=== PATIENT | female | born 1945 | race Caucasian/White ===

== ENCOUNTER 2020-02-17 08:12 | Outpatient (CLI) | payer MEDICARE, OTHER, SELFPAY ==
[2020-02-17 08:41] LABS: Basophils Percent Auto 0.3 % (0.2-1.2); Eosinophils Absolute Auto 0.1 K/mm3 (0-0.3); Eosinophils Percent Auto 1.2 % (0-4.4); Hematocrit 39.7 % (37.0-47.0); Hemoglobin 13.3 g/dL (12.0-15.0); Immature Granulocyte Absolute 0.04 K/mm3 (0.00-0.031); Immature Granulocyte Percent A 0.6 % (0-0.5); Immature Platelet Fraction Pct 4.9 % (0.9-11.2); Lymphocytes Percent Auto 26.2 % (18.3-44.2); Mean Corpuscular HGB Conc 33.5 g/dl (32-36); Mean Corpuscular Volume 92.5 fl (80-100); Mean Platelet Volume 11.3 fl (7.4-10.4); Monocytes Absolute Auto 0.4 K/mm3 (0.1-0.6); Monocytes Percent Auto 6.2 % (2.6-8.5); Neutrophils Absolute Auto 4.3 K/mm3 (1.3-6.7); Neutrophils Percent Auto 65.5 % (45.5-73.1); Platelet Count Result 182 k/mm3 (150-375); Red Blood Count 4.29 M/mm3 (4.2-5.4); Red Cell Distribution Width 13.6 % (11.5-14.5); White Blood Count 6.5 K/mm3 (4.5-10.0)
[2020-02-17 08:53] LABS: Hemoglobin A1C 5.4 % (<5.7)
[2020-02-17 08:55] LABS: Alanine Aminotransferase 19 U/L (4-35); Alkaline Phosphatase 77 U/L (38-126); Anion Gap 6 mmol/L (8-16); Aspartate Amino Transferase 27 U/L (14-36); Bilirubin,Total 0.8 mg/dL (0.2-1.3); Blood Urea Nitrogen 22 mg/dL (7-17); Calcium 9.5 mg/dL (8.4-10.2); Carbon Dioxide 27 mmol/L (22-30); Chloride 105 mmol/L (98-107); Cholesterol 158 mg/dL (0-200); Estimated Glomerular Filt Rate 54; Glucose 116 mg/dL (65-105); HDL Direct 51 mg/dL; Potassium 4.2 mmol/L (3.4-5.0); Sodium 138 mmol/L (137-145); Triglycerides 248 mg/dL (<150)
[2020-02-17 09:03] LABS: LDL Cholesterol Direct 49 mg/dL
[2020-02-17 09:22] LABS: Thyroid Stimulating Hormone 0.626 uIU/mL (0.465-4.680)
== END 2020-02-17 08:13 | disposition home or self-care (01) ==
LOC: ANHLAB 08:15
PROVIDERS: PCP Family Medicine; Visit Provider Family Medicine
DX: R53.82 Chronic fatigue, unspecified (principal); I10 Essential (primary) hypertension; R73.01 Impaired fasting glucose
CPT/HCPCS: 36415; 80053; 80061; 83036; 84443; 85025; 85055

== ENCOUNTER → 2020-11-15 12:21 | Outpatient (CLI) | payer MEDICARE, OTHER, SELFPAY ==
--- NOTE | ~2020-11-15 | MM_ITS ---
EXAMINATION: MM screening [facility] BI w eliseo HISTORY: Screening mammogram TECHNIQUE: Craniocaudal and mediolateral oblique 3-D tomosynthesis images were obtained and synthetic 2-D images were generated. CAD analysis was submitted and interpreted. COMPARISON: 03/19/2019, 09/04/2017, 06/2015 bilateral digital screening mammogram examinations BREAST PARENCHYMAL COMPOSITION: The breasts are almost entirely fatty. FINDINGS: There is no evidence of suspicious mass, calcification, or architectural distortion to sugg est malignancy in either breast. There has been no suspicious interval change. IMPRESSION: 1. No mammographic evidence of malignancy. 2. Recommend routine screening mammography in one year. BI-RADS Category 1: Negative Reviewed, dictated and finalized at location A.
== END ==
PROVIDERS: PCP Family Medicine; Visit Provider Family Medicine
DX: Z12.31 Encounter for screening mammogram for malignant neoplasm of breast (principal)
CPT/HCPCS: 77063; 77067

== ENCOUNTER 2021-01-19 07:45 | Outpatient (CLI) | payer MEDICARE, OTHER, SELFPAY ==
[2021-01-19 08:19] LABS: Basophils Percent Auto 0.4 % (0.2-1.2); Eosinophils Absolute Auto 0.1 K/mm3 (0-0.3); Eosinophils Percent Auto 1.6 % (0-4.4); Hematocrit 41.4 % (37.0-47.0); Hemoglobin 13.1 g/dL (12.0-15.0); Immature Granulocyte Absolute 0.03 K/mm3 (0.00-0.031); Immature Granulocyte Percent A 0.4 % (0-0.5); Lymphocytes Absolute Auto 1.92 K/mm3 (0.9-3.2); Lymphocytes Percent Auto 27.5 % (18.3-44.2); Mean Corpuscular HGB Conc 31.6 g/dl (32-36); Mean Corpuscular Volume 91.6 fl (80-100); Mean Platelet Volume 11.2 fl (7.4-10.4); Monocytes Absolute Auto 0.5 K/mm3 (0.1-0.6); Monocytes Percent Auto 7.5 % (2.6-8.5); Neutrophils Absolute Auto 4.4 K/mm3 (1.3-6.7); Neutrophils Percent Auto 62.6 % (45.5-73.1); Platelet Count Result 195 k/mm3 (150-375); Red Blood Count 4.52 M/mm3 (4.2-5.4); Red Cell Distribution Width 13.3 % (11.5-14.5)
[2021-01-19 08:34] LABS: Alanine Aminotransferase 19 U/L (4-35); Albumin Level 4.1 g/dL (3.5-5.1); Alkaline Phosphatase 90 U/L (38-126); Anion Gap 8 mmol/L (8-16); Aspartate Amino Transferase 27 U/L (14-36); Bilirubin,Total 0.4 mg/dL (0.2-1.3); Blood Urea Nitrogen 22 mg/dL (7-17); Calcium 9.9 mg/dL (8.4-10.2); Carbon Dioxide 29 mmol/L (22-30); Chloride 101 mmol/L (98-107); Cholesterol 148 mg/dL (0-200); Estimated Glomerular Filt Rate 44; Glucose 123 mg/dL (65-110); HDL Direct 55 mg/dL; Potassium 4.3 mmol/L (3.4-5.0); Sodium 138 mmol/L (137-145); Triglycerides 209 mg/dL (<150)
[2021-01-19 08:45] LABS: LDL Cholesterol Direct 43 mg/dL
== END 2021-01-19 07:46 | disposition home or self-care (01) ==
LOC: ANHLAB 07:48
PROVIDERS: PCP Family Medicine; Visit Provider Family Medicine
DX: E78.2 Mixed hyperlipidemia (principal); I10 Essential (primary) hypertension
CPT/HCPCS: 36415; 80053; 80061; 85025

== ENCOUNTER → 2021-05-25 10:54 | Outpatient (CLI) | payer MEDICARE, OTHER, SELFPAY ==
--- NOTE | ~2021-05-25 | DEXA_ITS ---
Bone Density Report Name: ISIAH RANKIN Age: 75 Sex: Female Ethnicity: White Date of : 1945 Indication: postmenopausal; screening for osteoporosis; parental hip fracture; height loss; Referring Provider: CAROLANN STERLING Study: Bone densitometry was performed. Exam Date: May 25, 2021 Accession number: [id number] Bone Density: Region BMD T-score Z-score Classification AP Spine (L1-L4) 1.275 2.1 4.5 Normal Femoral Neck (Left) 0.814 -0.3 1.8 Normal Total Hip (Left) 1.006 0.5 2.3 Normal Femoral Neck (Right) 0.826 -0.2 1.9 Normal Total Hip (Right) 0.907 -0.3 1.5 Normal Total Hip Mean 0.957 0.1 1.9 Normal World Health Organization criteria for BMD impression classify patients as: Normal (T-score at or above -1.0), Osteopenia (T-score between -1.0 and -2.5), or Osteoporosis (T-score at or below -2.5). 10-year Fracture Risk: FRAX not reported because: All T-scores for Spine Total, Hip Total, Femoral Neck at or above -1.0 Previous Exams: Region Exam Age BMD T-score BMD Change BMD Change Date g/cm2 vs Baseline vs Previous AP Spine(L1-L4) 05/25/2021 75 1.275 2.1 0.105* 0.045* 03/19/2019 73 1.230 1.7 0.060* 0.060* 06/30/2015 69 1.170 1.1 Total Hip(Left) 05/25/2021 75 1.006 0.5 0.036* 0.019 03/19/2019 73 0.987 0.4 0.016 0.016 06/30/2015 69 0.971 0.2 Total Hip(Right) 05/25/2021 75 0.907 -0.3 0.011 0.010 03/19/2019 73 0.897 -0.4 0.001 0.001 06/30/2015 69 0.897 -0.4 *Denotes significance at 95% confidence level, LSC for AP Spine = 0.022 g/cm2, LSC for Total Hip = 0.027 g/cm2 Clinical Information Provided by Patient: Parent has had a hip fracture Has used the following medications: Vitamin D Patient maximum height was 65 Menopause Age: 54 No regular weight bearing exercise Does not regularly consume dairy products Drinks caffeinated beverages Onset of menses at age 12 Number of children 2 Impression: The patient has normal bone mass. The patient has risk factors, including: parental hip fracture. No significant bone loss was observed. Discussion: BONE DENSITY IS ABOVE THE MINIMUM DESIRABLE LEVEL AT ALL SKELETAL SITES TESTED. This patient?s bone mineral density is above the minimum desirable level (T-score -1.0 or better) at all sites measured. The patient should follow a healthful
== END ==
PROVIDERS: PCP Family Medicine; Visit Provider Family Medicine
DX: Z78.0 Asymptomatic menopausal state (principal)
CPT/HCPCS: 77080

== ENCOUNTER 2021-08-09 07:39 | Outpatient (CLI) | payer MEDICARE, OTHER, SELFPAY ==
[2021-08-09 08:08] LABS: Basophils Percent Auto 0.2 % (0.2-1.2); Eosinophils Absolute Auto 0.1 K/mm3 (0-0.3); Eosinophils Percent Auto 1.1 % (0-4.4); Hematocrit 42.5 % (37.0-47.0); Immature Granulocyte Absolute 0.04 K/mm3 (0.00-0.031); Immature Granulocyte Percent A 0.5 % (0-0.5); Lymphocytes Absolute Auto 2.13 K/mm3 (0.9-3.2); Lymphocytes Percent Auto 25.2 % (18.3-44.2); Mean Corpuscular HGB Conc 32.9 g/dl (32-36); Mean Corpuscular Hemoglobin 29.9 pg (26-34); Mean Corpuscular Volume 90.6 fl (80-100); Mean Platelet Volume 10.8 fl (7.4-10.4); Monocytes Absolute Auto 0.5 K/mm3 (0.1-0.6); Monocytes Percent Auto 5.7 % (2.6-8.5); Neutrophils Absolute Auto 5.7 K/mm3 (1.3-6.7); Neutrophils Percent Auto 67.3 % (45.5-73.1); Platelet Count Result 180 k/mm3 (150-375); Red Blood Count 4.69 M/mm3 (4.2-5.4); Red Cell Distribution Width 13.2 % (11.5-14.5); White Blood Count 8.5 K/mm3 (4.5-10.0)
[2021-08-09 08:21] LABS: Alanine Aminotransferase 15 U/L (4-35); Albumin Level 4.2 g/dL (3.5-5.1); Alkaline Phosphatase 97 U/L (38-126); Anion Gap 7 mmol/L (8-16); Aspartate Amino Transferase 24 U/L (14-36); Bilirubin,Total 0.7 mg/dL (0.2-1.3); Blood Urea Nitrogen 19 mg/dL (7-17); Calcium 9.3 mg/dL (8.4-10.2); Carbon Dioxide 32 mmol/L (22-30); Chloride 102 mmol/L (98-107); Cholesterol 157 mg/dL (0-200); Estimated Glomerular Filt Rate 54; Glucose 124 mg/dL (65-110); HDL Direct 50 mg/dL; Potassium 3.9 mmol/L (3.4-5.0); Sodium 141 mmol/L (137-145); Triglycerides 269 mg/dL (<150)
[2021-08-09 08:32] LABS: LDL Cholesterol Direct 43 mg/dL
[2021-08-09 09:25] LABS: Free T4 Free Thyroxine 1.21 ng/mL (0.78-2.19)
[2021-08-09 09:40] LABS: Total Triiodothyronine (T3) 1.24 NG/ML (0.97-1.69)
== END 2021-08-09 07:40 | disposition home or self-care (01) ==
LOC: ANHLAB 07:44
PROVIDERS: PCP Family Medicine; Visit Provider Family Medicine
DX: E03.9 Hypothyroidism, unspecified (principal); I10 Essential (primary) hypertension; E78.2 Mixed hyperlipidemia
CPT/HCPCS: 36415; 80053; 80061; 84439; 84443; 84480; 85025

== ENCOUNTER 2021-08-16 08:00 | Outpatient (CLI) | payer MEDICARE, OTHER, SELFPAY ==
[2021-08-16 09:31] LABS: Alanine Aminotransferase 16 U/L (4-35); Albumin Level 4.2 g/dL (3.5-5.1); Alkaline Phosphatase 83 U/L (38-126); Anion Gap 8 mmol/L (8-16); Aspartate Amino Transferase 26 U/L (14-36); Blood Urea Nitrogen 18 mg/dL (7-17); Calcium 9.3 mg/dL (8.4-10.2); Carbon Dioxide 28 mmol/L (22-30); Chloride 103 mmol/L (98-107); Estimated Glomerular Filt Rate 54; Glucose 119 mg/dL (65-110); Potassium 3.6 mmol/L (3.4-5.0); Sodium 139 mmol/L (137-145)
[2021-08-16 09:32] LABS: Hemoglobin A1C 5.7 % (<5.7)
== END 2021-08-16 08:01 | disposition home or self-care (01) ==
LOC: ANHLAB 08:03
PROVIDERS: PCP Family Medicine; Visit Provider Nurse Practitioner Gerontology
DX: R73.9 Hyperglycemia, unspecified (principal); E78.2 Mixed hyperlipidemia
CPT/HCPCS: 36415; 80053; 83036

== ENCOUNTER 2022-02-09 10:31 | Outpatient (CLI) | payer MEDICARE, OTHER, SELFPAY ==
[2022-02-09 08:36] LABS: Alanine Aminotransferase 19 U/L (6-35); Albumin Level 4.4 g/dL (3.5-5.1); Alkaline Phosphatase 100 U/L (38-126); Anion Gap 14 mmol/L (8-16); Aspartate Amino Transferase 25 U/L (14-36); Bilirubin,Total 0.7 mg/dL (0.2-1.3); Blood Urea Nitrogen 20 mg/dL (7-17); Calcium 9.3 mg/dL (8.4-10.2); Carbon Dioxide 27 mmol/L (22-30); Chloride 100 mmol/L (98-107); Estimated Glomerular Filt Rate 54; Glucose 142 mg/dL (65-110); Potassium 3.5 mmol/L (3.4-5.0); Sodium 141 mmol/L (137-145)
[2022-02-09 11:07] LABS: Hemoglobin A1C 5.7 % (<5.7)
== END 2022-02-09 10:32 | disposition home or self-care (01) ==
LOC: ANHLAB 10:31
PROVIDERS: Physician Assistant; PCP Family Medicine; Visit Provider Family Medicine
DX: R73.9 Hyperglycemia, unspecified (principal); I10 Essential (primary) hypertension
CPT/HCPCS: 36415; 80053; 83036

== ENCOUNTER → 2022-02-09 12:31 | Outpatient (CLI) | payer MEDICARE, OTHER, SELFPAY ==
--- NOTE | ~2022-02-09 | MM_ITS ---
EXAMINATION: MM screening [facility] BI w eliseo HISTORY: Screening mammogram TECHNIQUE: Craniocaudal and mediolateral oblique 3-D tomosynthesis images were obtained and synthetic 2-D images were generated. CAD analysis was submitted and interpreted. COMPARISON: 11/15/2020, 03/15/2019, 09/04/2017 bilateral screening mammogram examinations BREAST PARENCHYMAL COMPOSITION: The breasts are almost entirely fatty. FINDINGS: There is an approximately 3 mm density in the upper outer left breast (MLO Tomosynthesis im age 26/83); this is most likely a tortuous vessel versus small lymph node or breast mass.. Diagnostic left mammogram is recommended, with ultrasound if required. Otherwise there is no evidence of suspicious mass, calcification, or architectural distortion to sugg est malignancy in either breast. There has been no other suspicious interval change. IMPRESSION: 1. 3 mm density, upper outer left breast; differential diagnosis includes tortuous vessel versus smal l lymph node or small breast mass. 2. Recommend diagnostic left mammogram, with breast ultrasound examination if required BI-RADS Category 0: Incomplete: Needs additional imaging evaluation. Reviewed, dictated and finalized at location A. IMPRESSION: 1. 3 mm density, upper outer left breast; differential diagnosis includes tortu ous vessel versus small lymph node or small breast mass. 2. Recommend diagnostic left mammogram, with breast ultrasound examination if r equired BI-RADS Category 0: Incomplete: Needs additional imaging evaluation.
== END ==
PROVIDERS: PCP Family Medicine; Visit Provider Family Medicine
DX: Z12.31 Encounter for screening mammogram for malignant neoplasm of breast (principal); R92.8 Other abnormal and inconclusive findings on diagnostic imaging of breast
CPT/HCPCS: 77063; 77067

== ENCOUNTER → 2022-02-27 09:19 | Outpatient (CLI) | payer MEDICARE, OTHER, SELFPAY ==
--- NOTE | ~2022-02-27 | MMUS_ITS ---
EXAMINATION: MM diagnostic [facility] LT w eliseo, US breast LT limited HISTORY: Possible left breast mass on screening mammogram TECHNIQUE: Additional 3-D tomosynthesis images of the left breast were performed and synthetic 2-D im ages were generated. CAD analysis was submitted and interpreted. High resolution limited left breast ultrasound was performed. COMPARISON: 02/09/2022, 11/15/2020, 03/19/2019 BREAST PARENCHYMAL COMPOSITION: There are scattered areas of fibroglandular density. FINDINGS: MAMMOGRAPHIC FINDINGS: There is a return to baseline fibroglandular appearance with spot compression of the left breast in t he area questioned on screening mammogram. ULTRASOUND: There is no evidence of focal abnormal solid or cystic mass in the vicinity of the mammographic findi ng in question. IMPRESSION: 1. No mammographic or sonographic evidence of malignancy. 2. Recommend routine screening mammography in one year. BI-RADS Category 1: Negative Reviewed, dictated and finalized at location A. IMPRESSION: 1. No mammographic or sonographic evidence of malignancy. 2. Recommend routine screening mammography in one year. BI-RADS Category 1: Negative
== END ==
PROVIDERS: PCP Family Medicine; Visit Provider Physician Assistant
DX: R92.8 Other abnormal and inconclusive findings on diagnostic imaging of breast (principal)
CPT/HCPCS: 76642; 77061; 77065; G0279

== ENCOUNTER 2022-08-22 07:50 | Outpatient (CLI) | payer MEDICARE, OTHER, SELFPAY ==
[2022-08-22 08:35] LABS: Basophils Percent Auto 0.4 % (0.2-1.2); Eosinophils Absolute Auto 0.2 K/mm3 (0-0.3); Eosinophils Percent Auto 1.7 % (0-4.4); Hematocrit 41.5 % (37.0-47.0); Hemoglobin 13.8 g/dL (12.0-15.0); Immature Granulocyte Absolute 0.04 K/mm3 (0.00-0.031); Immature Granulocyte Percent A 0.4 % (0-0.5); Lymphocytes Absolute Auto 1.95 K/mm3 (0.9-3.2); Lymphocytes Percent Auto 21.5 % (18.3-44.2); Mean Corpuscular HGB Conc 33.3 g/dl (32-36); Mean Corpuscular Hemoglobin 30.3 pg (26-34); Mean Platelet Volume 11.5 fl (7.4-10.4); Monocytes Absolute Auto 0.6 K/mm3 (0.1-0.6); Monocytes Percent Auto 6.1 % (2.6-8.5); Neutrophils Absolute Auto 6.4 K/mm3 (1.3-6.7); Neutrophils Percent Auto 69.9 % (45.5-73.1); Platelet Count Result 205 k/mm3 (150-375); Red Blood Count 4.56 M/mm3 (4.2-5.4); Red Cell Distribution Width 13.2 % (11.5-14.5); White Blood Count 9.1 K/mm3 (4.5-10.0)
[2022-08-22 08:53] LABS: Alanine Aminotransferase 21 U/L (6-35); Albumin Level 4.3 g/dL (3.5-5.1); Alkaline Phosphatase 91 U/L (38-126); Anion Gap 6 mmol/L (8-16); Aspartate Amino Transferase 26 U/L (14-36); Bilirubin,Total 0.9 mg/dL (0.2-1.3); Blood Urea Nitrogen 19 mg/dL (7-17); Calcium 9.5 mg/dL (8.4-10.2); Carbon Dioxide 30 mmol/L (22-30); Chloride 103 mmol/L (98-107); Cholesterol 154 mg/dL (0-200); Estimated Glomerular Filt Rate > 60; Glucose 122 mg/dL (65-110); HDL Direct 47 mg/dL; Potassium 4.1 mmol/L (3.4-5.0); Sodium 139 mmol/L (137-145); Triglycerides 247 mg/dL (<150)
[2022-08-22 09:04] LABS: LDL Cholesterol Direct 46 mg/dL
[2022-08-22 09:41] LABS: Hemoglobin A1C 5.6 % (<5.7)
== END 2022-08-22 07:51 | disposition home or self-care (01) ==
PROVIDERS: PCP Family Medicine; Visit Provider Nurse Practitioner Gerontology
DX: E78.2 Mixed hyperlipidemia (principal); R73.9 Hyperglycemia, unspecified; I10 Essential (primary) hypertension
CPT/HCPCS: 36415; 80053; 80061; 83036; 84443; 85025

== ENCOUNTER 2023-01-30 07:30 | Outpatient (CLI) | payer MEDICARE, OTHER, SELFPAY ==
--- NOTE | ~2023-01-30 | XR_ITS ---
EXAM: XR lumbar spine 2-3V DATE: 01/30/2023 07:57 HISTORY: M54.40 - Lumbago with sciatica, unspecified side . COMPARISON: None available. FINDINGS: Calcified leiomyoma. Exaggerated lumbar lordosis. Lumbar scoliosis. 10 mm anterolisthesis at L4-5, the remaining vertebral bodies are aligned. 5 nonrib-bearing lumbar-type vertebral bodies. P edicles intact. Superior endplate deformity at L5, the remaining vertebral body heights preserved. Mu ltilevel disc space narrowing, vacuum phenomenon at L2-3 and L4-5. Severe multilevel mid and lower [place] mbar facet hypertrophy and sclerosis, with interspinous narrowing. Aortic calcification without evide nt aneurysm IMPRESSION: Grade 2 anterolisthesis at L4-5. Superior endplate deformity at L5 of uncertain chronicit y. Multilevel severe degenerative disc disease and facet arthropathy. Reviewed, dictated and finalized at location K. IMPRESSION: Grade 2 anterolisthesis at L4-5. Superior endplate deformity at L5 of uncertain chronicity. Multilevel severe degenerative disc disease and facet arthropathy.
[2023-01-30 08:34] LABS: LDL Cholesterol Direct 44 mg/dL
[2023-01-30 08:39] LABS: Alanine Aminotransferase 23 U/L (6-35); Albumin Level 4.2 g/dL (3.5-5.1); Alkaline Phosphatase 97 U/L (38-126); Anion Gap 7 mmol/L (8-16); Aspartate Amino Transferase 34 U/L (14-36); Bilirubin,Total 0.7 mg/dL (0.2-1.3); Blood Urea Nitrogen 17 mg/dL (7-17); Calcium 9.2 mg/dL (8.4-10.2); Carbon Dioxide 29 mmol/L (22-30); Chloride 104 mmol/L (98-107); Cholesterol 135 mg/dL (0-200); Estimated Glomerular Filt Rate 54; Glucose 121 mg/dL (65-110); HDL Direct 50 mg/dL; Hemoglobin A1C 5.8 % (<5.7); Sodium 140 mmol/L (137-145); Triglycerides 199 mg/dL (<150)
== END 2023-01-30 07:31 | disposition home or self-care (01) ==
PROVIDERS: PCP Family Medicine; Visit Provider Family Medicine
DX: R73.09 Other abnormal glucose (principal); E78.2 Mixed hyperlipidemia; I10 Essential (primary) hypertension; M54.40 Lumbago with sciatica, unspecified side; M51.36 Other intervertebral disc degeneration, lumbar region
CPT/HCPCS: 36415; 72100; 80053; 80061; 83036

== ENCOUNTER 2023-02-11 10:16 | Outpatient (CLI) | payer MEDICARE, OTHER, SELFPAY ==
[2023-02-11 10:55] LABS: Basophils Percent Auto 0.4 % (0.2-1.2); Eosinophils Absolute Auto 0.1 K/mm3 (0-0.3); Eosinophils Percent Auto 1.3 % (0-4.4); Hematocrit 41.1 % (37.0-47.0); Hemoglobin 13.4 g/dL (12.0-15.0); Immature Granulocyte Absolute 0.03 K/mm3 (0.00-0.031); Immature Granulocyte Percent A 0.4 % (0-0.5); Lymphocytes Absolute Auto 1.79 K/mm3 (0.9-3.2); Mean Corpuscular HGB Conc 32.6 g/dl (32-36); Mean Corpuscular Hemoglobin 30.1 pg (26-34); Mean Corpuscular Volume 92.4 fl (80-100); Mean Platelet Volume 11.2 fl (7.4-10.4); Monocytes Absolute Auto 0.6 K/mm3 (0.1-0.6); Neutrophils Percent Auto 69.9 % (45.5-73.1); Platelet Count Result 215 k/mm3 (150-375); Red Blood Count 4.45 M/mm3 (4.2-5.4); Red Cell Distribution Width 13.2 % (11.5-14.5); White Blood Count 8.5 K/mm3 (4.5-10.0)
[2023-02-11 11:03] LABS: Appearance Urine Clear (Clear); Bacteria Urine None Seen /hpf; Bilirubin Urine Negative (Negative); Blood Urine 2+ (Negative); Color Urine Yellow (Yellow); Glucose Urine UA Negative (Negative); Ketones Urine Negative (Negative); Leukocyte Esterase Ur 3+ LEU/UL (Negative); Nitrate Urine Negative (Negative); Non Pathogenic Casts 0-2; Protein Urine Negative (Negative); Specific Grav Ur 1.009 (1.001-1.035); Squamous Epithelial Cell Urine Occasional /hpf (Few); Urobilinogen Urine 0.2 mg/dL (<2.0); WBC Urine 21-50 /hpf; pH Urine 6.5 (5.0-9.0)
[2023-02-11 11:09] LABS: Alanine Aminotransferase 24 U/L (6-35); Albumin Level 4.3 g/dL (3.5-5.1); Alkaline Phosphatase 109 U/L (38-126); Anion Gap 9 mmol/L (8-16); Aspartate Amino Transferase 36 U/L (14-36); Bilirubin,Total 0.7 mg/dL (0.2-1.3); Blood Urea Nitrogen 17 mg/dL (7-17); Calcium 9.6 mg/dL (8.4-10.2); Carbon Dioxide 27 mmol/L (22-30); Chloride 100 mmol/L (98-107); Estimated Glomerular Filt Rate 54; Glucose 128 mg/dL (65-110); Potassium 3.7 mmol/L (3.4-5.0); Sodium 136 mmol/L (137-145)
[2023-02-11 11:12] LABS: Add Urine Microscopic? YES
== END 2023-02-11 10:17 | disposition home or self-care (01) ==
LOC: ANHLAB 10:19
PROVIDERS: PCP Family Medicine; Visit Provider Physician Assistant
DX: R31.9 Hematuria, unspecified (principal)
CPT/HCPCS: 36415; 80053; 81001; 85025; 87086

== ENCOUNTER → 2023-02-14 10:46 | Outpatient (CLI) | payer MEDICARE, OTHER, SELFPAY ==
--- NOTE | ~2023-02-14 | US_ITS ---
EXAMINATION: US pelvic complete w TV DATE: 02/14/2023 11:14 INDICATION: Postmenopausal bleeding TECHNIQUE: Multiple transabdominal and endovaginal sonographic images of the pelvis were obtained. COMPARISON: None. FINDINGS: The uterus measures 7 x 4 x 5 cm. The endometrial complex measures 7 mm. A 1.9 cm calcifica tion of the posterior uterine body likely reflects a fibroid. The ovaries are not visualized however no adnexal abnormality is seen. There is no free fluid in the pelvis. IMPRESSION: 1. Mild endometrial thickening which may be due to hyperplasia, polyp, or malignancy. Endometrial boubacar pling is recommended. Reviewed, dictated and finalized at location L. IMPRESSION: 1. Mild endometrial thickening which may be due to hyperplasia, polyp, or malig brandyn. Endometrial sampling is recommended.
== END ==
PROVIDERS: PCP Physician Assistant; Visit Provider Physician Assistant
DX: N93.9 Abnormal uterine and vaginal bleeding, unspecified (principal); Z78.0 Asymptomatic menopausal state
CPT/HCPCS: 76830; 76856

== ENCOUNTER 2023-03-07 01:17 | Day surgery (SDC) | payer MEDICARE, OTHER, SELFPAY ==
[2023-03-01 09:31] VITALS: BMI 35.2
--- NOTE | 2023-03-01 09:38 | PC.NURSE ---
Report to the Outpatient Waiting Room, entrance under the green pavilion located off [facility], at time _130pm_ on date _[id number]_. Planned Procedure Time: _330pm_. Time changes happen often and if your time is changed the preop area will call you the afternoon before. - You and your visitor will be asked to self-screen and do not enter if you have any COVID symptoms. - A mask is optional within the hospital at this time. Patients may have clear liquids (water, carbonated beverages, clear teas, apple juice) until 3 hours prior to surgery with a maximum of 20 ounces. - No food from midnight until time of surgery Take the following medications with a SIP of water the morning of surgery: ___Metoprolol DO NOT STOP ANY OF YOUR OTHER PRESCRIPTION MEDICATIONS PRIOR TO SURGERY ?EXCEPT THE FOLLOWING Medications to discontinue per physician None Date to take last dose Please no make-up, nail iranian, hairspray, perfume, deodorant, or body powder the day of surgery. No jewelry (including any body piercings) or valuables the day of surgery, leave them at home. Please take a shower or bath the night before, or the morning of, surgery with an antibacterial soap. Wear comfortable, loose fitting clothing. - Jewelry must be removed prior to entering the operating room. Rings and piercings that are not removed may be cut off. - The hospital will not accept responsibility for valuables. - Please leave all valuables, including medications, at home the day of surgery. If you are going home after surgery, a licensed bobtail driver must drive you home. - NO public transportation without another adult if you receive anesthesia. - We recommend that an adult stay with you for 24 hours following discharge. - We also recommend that you do not drive, make important decision, drink alcoholic beverages, or take any drugs that were not prescribed by your health care provider for at least 24 hours after your discharge time. Follow any additional instructions given to you from your surgeon. If you or anyone in your household have experienced Covid symptoms in the past week, please notify your surgeon or the nurse liaison at the phone number below for possible testing. Telephone instructions given to __Patient_and asked if any additional questions and then verbalized understanding. Patient advised to call surgeon office or pre surgery nurse liaison [phone] if any additional questions.
--- NOTE | 2023-03-07 08:42 | PM.IMHP ---
H&P: HPI History of Present Illness Date/Time: 03/07/23 08:42 Chief Complaint: Postmenopausal bleeding Narrative: 77-year-old female who presents for hysteroscopy D&C for management of postmenopausal bleeding. Patient states she had an episode of postmenopausal bleeding that started approximately 2 weeks ago.? Patient states it initially started as dark brown spotting on tissue.? The patient states that after several days it progressed to a bright red bleeding.? Patient's primary care physician ordered a pelvic ultrasound.? Pelvic ultrasound returned with a slightly thickened endometrial lining at 7 mm.? She was also noted to have a 2 cm posterior fibroid.? Patient went through menopause in her 50s.? The patient states she had a net her episode of breakthrough spotting last year.? Patient has never been on any hormone replacement therapy.? Patient denies any pain, cramping, fevers, chills. Review of Systems Cardiovascular: Cardiovascular: Denies chest pain, Denies leg edema, Denies palpitations, Denies dyspnea and Denies dyspnea on exertion Respiratory: Respiratory: Denies cough, Denies dyspnea and Denies dyspnea on exertion Gastrointestinal: Gastrointestinal: Denies abdominal pain, Denies constipation, Denies diarrhea, Denies nausea and Denies vomiting Genitourinary: Genitourinary: Denies hematuria, Denies urinary frequency, Denies dysuria, Denies pelvic pain, Denies urinary incontinence and Denies vaginal discharge Neurologic: Reports system reviewed and no additional complaints, except as documented Psychiatric: Psychiatric: Reports no additional psychiatric complaints Endocrine: Endocrine: Denies palpitations PMFSH Past Medical History Medical History (Updated 02/19/23 @ 14:32 by Preston Lazcano MD) Benign systolic hypertension Mixed hyperlipidemia Surgical History Surgical History (Updated 02/19/23 @ 14:15 by Anna Hernandez CMA) History of total knee arthroplasty Hx of cholecystectomy Status post total shoulder arthroplasty Family History Family History Father Hypertension Family history of elevated blood lipids Patient's father is Mother Hypertension Family history of elevated blood lipids Other Family history of malignant neoplasm Social History Social History (Updated 02/19/23 @ 14:16 by Anna Hernandez CMA) Social History: Smoking status: Never smoker Second hand tobacco smoke exposure: No Alcohol intake: current Alcohol use details: seldom Substance use: never Substance use type: does not use Lack of Transportation: No Lack of Food: Never True Current Housing: I Have Housing Concerned About Future Housing: No Difficulty Paying Gas/Electric Bills: No Difficulty Paying for Meds: No Currently Unemployed: YES Education: Decline to Answer Difficulty w/ Childcare or Family Care: No Living arrangements: with family Occupation/Education: retired Gender identity (if verbalized by the patient): Female Sexual Orientation (if Verbalized by the Patient): Straight or Heterosexual Spiritual care concerns: No Meds Home Medications and Allergies Home Medications Medication Instructions Recorded Confirmed Type metoprolol succinate 50 mg See Rx Instructions .Route 12/06/22 03/01/23 Rx tablet,extended release 24 hr .COMPLEX #180 tabs atorvastatin 10 mg tablet 10 mg PO QHS #90 tabs 12/18/22 03/01/23 Rx ezetimibe 10 mg tablet (Zetia) 10 mg PO DAILY #90 tabs 12/18/22 03/01/23 Rx irbesartan 300 See Rx Instructions .Route 12/19/22 03/01/23 Rx mg-hydrochlorothiazide 12.5 mg .COMPLEX #90 tabs tablet omeprazole magnesium 10 mg oral 10 mg PO DAILY 02/19/23 03/01/23 History suspension,delayed release (Prilosec) ibuprofen 200 mg tablet (Advil) 400 mg PO Q6H PRN Pain 03/01/23 03/01/23 History Allergies Allergy/AdvReac Type Severity Reaction Status Date / Time
--- NOTE | 2023-03-07 08:44 | WPDHPUPDATE1 ---
History and Physical Update Update Date/Time: 03/07/23 08:44 History and Physical has been reviewed, including an updated exam of the patient. There are NO changes in the patient's condition. Risks, benefits, and alternatives have been discussed and questions answered. Patient agrees to proceed with procedure.
[2023-03-07] MEDS: ACETAMINOPHEN 500 MG TABLET 1000 MG PO (14:00)
--- NOTE | 2023-03-07 14:15 | WPDANESEPPF ---
Anes - Initial Pre Proc Eval Procedure: Operation Date: 03/07/23 15:30 Proposed Procedures p Hysteroscopy Dilation and Curettage - Preston Lazcano MD Date/Time: 03/07/23 14:15 Surgeon: Preston Lazcano MD Pre Op Diagnosis: Post Menopausal Bleeding Patient Data Age: 77 Gender: F Height: 1.63 m Weight: 93.2 kg Allergies Allergy/AdvReac Type Severity Reaction Status Date / Time Sulfa (Sulfonamide Allergy Intermediate rash Verified 02/19/23 14:13 Antibiotics) Home Medications Medication Instructions Recorded Confirmed Type metoprolol succinate 50 mg See Rx Instructions .Route 12/06/22 03/01/23 Rx tablet,extended release 24 hr .COMPLEX #180 tabs atorvastatin 10 mg tablet 10 mg PO QHS #90 tabs 12/18/22 03/01/23 Rx ezetimibe 10 mg tablet (Zetia) 10 mg PO DAILY #90 tabs 12/18/22 03/01/23 Rx irbesartan 300 See Rx Instructions .Route 12/19/22 03/01/23 Rx mg-hydrochlorothiazide 12.5 mg .COMPLEX #90 tabs tablet omeprazole magnesium 10 mg oral 10 mg PO DAILY 02/19/23 03/01/23 History suspension,delayed release (Prilosec) ibuprofen 200 mg tablet (Advil) 400 mg PO Q6H PRN Pain 03/01/23 03/01/23 History Patient hx anesthesia problems: none Family hx anesthesia problems: none Results Review: All pre-operative results and documents have been reviewed as part of the pre-operative evaluation. [facility] Past Medical History Medical History (Updated 03/07/23 @ 14:15 by Viet Martin MD) Benign systolic hypertension Mixed hyperlipidemia Obesity Surgical History Surgical History (Updated 02/19/23 @ 14:15 by Anna Hernandez CMA) History of total knee arthroplasty Hx of cholecystectomy Status post total shoulder arthroplasty Family History Family History Father Hypertension Family history of elevated blood lipids Patient's father is Mother Hypertension Family history of elevated blood lipids Other Family history of malignant neoplasm Social History Social History Social History: Smoking status: Never smoker Second hand tobacco smoke exposure: No Alcohol intake: current Alcohol use details: seldom Substance use: never Substance use type: does not use Lack of Transportation: No Lack of Food: Never True Current Housing: I Have Housing Concerned About Future Housing: No Difficulty Paying Gas/Electric Bills: No Difficulty Paying for Meds: No Currently Unemployed: YES Education: Decline to Answer Difficulty w/ Childcare or Family Care: No Living arrangements: with family Occupation/Education: retired Gender identity (if verbalized by the patient): Female Sexual Orientation (if Verbalized by the Patient): Straight or Heterosexual Spiritual care concerns: No Anes - Eval Final PreProcedure Day of Procedure 03/07/23 14:15 Patient weight: obese Heart: regular rate and rhythm Lungs: clear to auscultation Airway: Mallampati scale class II Neurological: alert and oriented Last oral intake: >/= 8 hours ASA classification: III Emergent: no Anesthetic plan: proceed Anesthesia type and monitoring: general GIVS and standard monitoring Results Review: All pre-operative results and documents have been reviewed as part of the pre-operative evaluation. Informed Consent: The patient's anesthetic plan and its attendant risks and benefits were discussed with the patient/family/POA. Questions were solicited and answers provided to the satisfaction of the patient/family/POA.
[2023-03-07 14:16] VITALS: BP 151/79; PULSE 74; RESP 14; TEMP 36.8; O2SAT 99
[2023-03-07] MEDS: LACTATED RINGERS 1,000 ML 30 ML IV CONT (14:22)
--- NOTE | 2023-03-07 15:09 | P.OP_ITS ---
Procedure Note - Detailed Date of Procedure 03/07/23 Pre-op Diagnosis Post Menopausal Bleeding Post-op Diagnosis Same Procedure Performed paracervical block hysteroscopy dilation & curettage Surgeon Preston Lazcano MD Anesthesia General Indications postmenopausal bleeding thickened endometrium on US Findings globally thickened and irregular endometrium, hypervascular. Pt found to have a friable exophytic lesion of the cervix. Description of Procedure Kanwal Nogueira presents for the above procedure for PMB. She was counseled as to the indications, risks, benefits, and alternatives to surgery, with the risks including bleeding, infection, damage to surrounding organs, VTE, and complications of anesthesia. Her verbal and written consent was obtained. PROCEDURE: The patient was taken to the OR and general anesthesia induced. She was prepped and draped in Cameron stirrups with support of the back and bilateral lower extremities. I/O catheterization performed of the bladder. The above findings were noted. In filtration with 1% lidocaine at the 3 and 9 o'clock cervical positions was performed. A single tooth tenaculum was placed on the anterior lip of the cervix. Hysteroscopy, using a normal saline medium, was performed and showed the above findings. Visualization of the endometrial cavity was complicated due to the large amount of abnormal tissue. Sharp uterine curettage was then performed and tissue placed on Telfa. The tissue was very friable. Large clumps of tissue were expressed with curettage. The tenaculum was removed and hemostasis was observed. The patient tolerated the procedure well. Sponge, lap, and needle counts were correct. The patient had SCD's on throughout the case for VTE prophylaxis. The patient was taken to the recovery room in stable condition. Estimated Blood Loss 25 Drains No Packing No Pathology Yes (endometrial curettings ) Complications No immediate complications Condition Stable Disposition PACU [facility] Billing Surgery - Charge Forward: Surgery Billing
[2023-03-07 15:12] VITALS: BP 110/48; PULSE 83; RESP 14; O2SAT 100
[2023-03-07 15:40] VITALS: BP 141/73; PULSE 61
[2023-03-07] MEDS: fentaNYL CITRATE INJ (*CRX) 100 MCG/2 ML VIAL 25 MCG IV PUSH ×3 (15:54→16:28)
[2023-03-07] MEDS: oxyCODONE HCL (*CRX) 5 MG TAB IR PO (15:55)
[2023-03-07 16:10] VITALS: BP 143/48; PULSE 56
[2023-03-07 16:40] VITALS: BP 147/65; PULSE 67
== END 2023-03-07 16:50 | disposition home or self-care (01) ==
PROVIDERS: PCP Physician Assistant; Visit Provider Student in an Organized Health Care Education/Training Program
PROC: 0U5B8ZZ Destruction of Endometrium, Via Natural or Artificial Opening Endoscopic (ICD-10-PCS; CPT 58563; principal; 2023-03-07 15:30)
DX: C54.1 Malignant neoplasm of endometrium (principal); N95.0 Postmenopausal bleeding; I10 Essential (primary) hypertension; E78.2 Mixed hyperlipidemia; E66.9 Obesity, unspecified; Z68.34 Body mass index [BMI] 34.0-34.9, adult
CPT/HCPCS: 58558; 88305; 88341; 88342; A9270; J2405; J2704; J3010; J7120

== ENCOUNTER 2023-04-11 08:29 | Outpatient (CLI) | payer MEDICARE, OTHER, SELFPAY ==
--- NOTE | ~2023-04-11 | MR_ITS ---
EXAMINATION: MR pelvis wo/w con DATE: 04/11/2023 10:07 INDICATION: Endometrial cancer. TECHNIQUE: Magnetic resonance imaging (MRI) of the pelvis was performed without and with 18 mL MultiH ance intravenous contrast. COMPARISON: CT abdomen and pelvis 04/11/2023 FINDINGS: There is a 5.0 x 4.9 cm hypoenhancing mass in the uterus involving the endometrial complex that exten ds to the surface of the uterus and likely invades the serosa of the uterus. There is a calcified fib roid uterus. There are no pathologically enlarged lymph nodes. There is no free intraperitoneal fluid . IMPRESSION: 1. Uterine mass with likely involvement of the serosa, consistent with endometrial cancer. Reviewed, dictated and finalized at location A. O WORKER IMPRESSION: 1. Uterine mass with likely involvement of the serosa, consistent with endometr ial cancer.
--- NOTE | ~2023-04-11 | CT_ITS ---
CT of the Abdomen and Pelvis: Indication: Endometrial carcinoma Technique: 2.5 mm axial scans were obtained through the abdomen and pelvis following intravenous adm inistration of 100 cc of Omnipaque 350. Dose reduction technique was used on this scan by utilizing a utomated exposure control and iterative reconstruction technique. The dose-length product (DLP) was 1 349.90 mGy-cm. Findings: Scans through the lung bases are unremarkable. There are multiple hypodense hepatic masses (at least 7), consistent with metastatic disease. Largest lesion is probably in the right hepatic lobe measuring approximately 3.8 cm in diameter. The spleen, pancreas, gallbladder, adrenals and kidneys are within normal limits. There are atherosclerotic calc ifications of the aorta. No lymphadenopathy. No bowel obstruction or bowel wall thickening. There is no evidence to suggest acute appendicitis. Du odenal diverticulum noted. Images through the pelvis were performed. Urinary bladder unremarkable. Somewhat heterogeneous appear ance of the uterus, with a small calcified fibroid present. No ascites. Impression: Multiple hepatic metastatic lesions, as detailed above. Somewhat heterogeneous appearance of the uterus. This could be related to history of endometrial canc er. Additional small calcified fibroid present. Reviewed, dictated and finalized at location . ELING AND CUTTING CONTROL CLERK Impression: Multiple hepatic metastatic lesions, as detailed above. Somewhat heterogeneous appearance of the uterus. This could be related to histo ry of endometrial cancer. Additional small calcified fibroid present.
--- NOTE | ~2023-04-11 | XR_ITS ---
Clinical Indication: Endometrial cancer PA and lateral views of the chest: Comparison: None Findings: The lungs are clear, without evidence of focal consolidation or pleural effusion. Cardiome diastinal silhouette is within normal limits. Right shoulder arthroplasty present. There is advanced degenerative change of the left glenohumeral joint. Impression: Clear lungs. Reviewed, dictated and finalized at location . PMENT MAN Impression: Clear lungs.
[2023-04-11 09:02] LABS: Estimated Glomerular Filt Rate 48
== END 2023-04-11 08:30 | disposition home or self-care (01) ==
PROVIDERS: PCP Family Medicine
DX: C54.1 Malignant neoplasm of endometrium (principal)
CPT/HCPCS: 71046; 72197; 74177; A9577; Q9967

== ENCOUNTER 2023-04-22 07:12 | Outpatient (CLI) | payer MEDICARE, OTHER, SELFPAY ==
[2023-04-22 07:38] LABS: Basophils Percent Auto 0.3 % (0.2-1.2); Eosinophils Absolute Auto 0.1 K/mm3 (0-0.3); Eosinophils Percent Auto 1.1 % (0-4.4); Hematocrit 39.6 % (37.0-47.0); Hemoglobin 12.7 g/dL (12.0-15.0); Immature Granulocyte Absolute 0.03 K/mm3 (0.00-0.031); Immature Granulocyte Percent A 0.3 % (0-0.5); Lymphocytes Absolute Auto 1.81 K/mm3 (0.9-3.2); Lymphocytes Percent Auto 20.2 % (18.3-44.2); Mean Corpuscular HGB Conc 32.1 g/dl (32-36); Mean Corpuscular Hemoglobin 29.7 pg (26-34); Mean Corpuscular Volume 92.5 fl (80-100); Mean Platelet Volume 10.4 fl (7.4-10.4); Monocytes Absolute Auto 0.6 K/mm3 (0.1-0.6); Monocytes Percent Auto 6.2 % (2.6-8.5); Neutrophils Absolute Auto 6.4 K/mm3 (1.3-6.7); Neutrophils Percent Auto 71.9 % (45.5-73.1); Platelet Count Result 220 k/mm3 (150-375); Red Blood Count 4.28 M/mm3 (4.2-5.4); Red Cell Distribution Width 13.1 % (11.5-14.5)
[2023-04-22 07:47] LABS: Alanine Aminotransferase 20 U/L (6-35); Albumin Level 4.2 g/dL (3.5-5.1); Alkaline Phosphatase 98 U/L (38-126); Anion Gap 10 mmol/L (8-16); Aspartate Amino Transferase 34 U/L (14-36); Bilirubin,Total 0.9 mg/dL (0.2-1.3); Blood Urea Nitrogen 17 mg/dL (7-17); Calcium 9.6 mg/dL (8.4-10.2); Carbon Dioxide 26 mmol/L (22-30); Chloride 102 mmol/L (98-107); Estimated Glomerular Filt Rate 48; Glucose 116 mg/dL (65-110); Potassium 3.9 mmol/L (3.4-5.0); Sodium 138 mmol/L (137-145)
[2023-04-22 07:49] LABS: Partial Thromboplastin Time 26.1 SECONDS (22.3-36.8)
[2023-04-22 13:09] LABS: Prothrombin Time 13.7 Seconds (11.1-14.7)
== END 2023-04-22 07:13 | disposition home or self-care (01) ==
PROVIDERS: PCP Family Medicine; Visit Provider Family Medicine
DX: I10 Essential (primary) hypertension (principal); N95.0 Postmenopausal bleeding; Z01.810 Encounter for preprocedural cardiovascular examination
CPT/HCPCS: 36415; 80053; 85025; 85610; 85730

== ENCOUNTER 2023-04-24 07:26 | Outpatient (CLI) | payer MEDICARE, OTHER, SELFPAY ==
--- NOTE | ~2023-04-24 | CT_ITS ---
Clinical Indication: Lung nodule CT Scan of the Chest with Contrast: Technique: Contiguous sections were acquired throughout the chest after intravenous administration of 75 cc of Omnipaque 350. Dose reduction technique was used on this scan by utilizing automated exposu re control and iterative reconstruction technique. The dose-length product (DLP) was 378.97 mGy-cm. COMPARISON: Abdominal pelvic CT dated 04/11/2023 Findings: There is no evidence of any significant mediastinal, hilar or axillary lymphadenopathy. There is no f illing defect in the pulmonary arterial tree to suggest pulmonary embolus. There is no evidence of ao rtic dissection or aneurysm. There is no evidence of pleural or pericardial effusion. There are numerous bilateral noncalcified pulmonary nodules measuring approximately 4-6 mm in diamete r. Images through the upper abdomen reveal hepatic metastatic lesions, stable from recent exam dated . Impression: Numerous bilateral noncalcified pulmonary nodule measuring approximate 4-6 mm in diameter. Given hist ory of endometrial carcinoma and evidence of hepatic metastatic disease, findings are suspicious for multiple small pulmonary metastatic lesions. Hepatic metastatic disease, as seen on prior abdominal pelvic CT dated 04/11/2023. Reviewed, dictated and finalized at [facility]. [employer] Impression: Numerous bilateral noncalcified pulmonary nodule measuring approximate 4-6 mm i n diameter. Given history of endometrial carcinoma and evidence of hepatic meta static disease, findings are suspicious for multiple small pulmonary metastatic lesions. Hepatic metastatic disease, as seen on prior abdominal pelvic CT dated 04/11/20 23.
== END 2023-04-24 07:27 | disposition home or self-care (01) ==
PROVIDERS: PCP Family Medicine
DX: R91.8 Other nonspecific abnormal finding of lung field (principal); K76.89 Other specified diseases of liver
CPT/HCPCS: 71260; Q9967

== ENCOUNTER 2023-05-09 07:05 | Outpatient (CLI) | payer MEDICARE, OTHER, SELFPAY ==
[2023-05-09 08:15] LABS: Basophils Percent Auto 0.4 % (0.2-1.2); Eosinophils Absolute Auto 0.1 K/mm3 (0-0.3); Eosinophils Percent Auto 1.1 % (0-4.4); Hematocrit 39.2 % (37.0-47.0); Hemoglobin 12.1 g/dL (12.0-15.0); Immature Granulocyte Absolute 0.04 K/mm3 (0.00-0.031); Immature Granulocyte Percent A 0.5 % (0-0.5); Lymphocytes Absolute Auto 1.61 K/mm3 (0.9-3.2); Lymphocytes Percent Auto 19.8 % (18.3-44.2); Mean Corpuscular HGB Conc 30.9 g/dl (32-36); Mean Corpuscular Hemoglobin 28.9 pg (26-34); Mean Corpuscular Volume 93.8 fl (80-100); Mean Platelet Volume 10.6 fl (7.4-10.4); Monocytes Absolute Auto 0.5 K/mm3 (0.1-0.6); Monocytes Percent Auto 6.4 % (2.6-8.5); Neutrophils Absolute Auto 5.9 K/mm3 (1.3-6.7); Neutrophils Percent Auto 71.8 % (45.5-73.1); Platelet Count Result 217 k/mm3 (150-375); Red Blood Count 4.18 M/mm3 (4.2-5.4); Red Cell Distribution Width 13.6 % (11.5-14.5); White Blood Count 8.2 K/mm3 (4.5-10.0)
[2023-05-09 08:39] LABS: Alanine Aminotransferase 19 U/L (6-35); Alkaline Phosphatase 96 U/L (38-126); Anion Gap 7 mmol/L (8-16); Aspartate Amino Transferase 31 U/L (14-36); Bilirubin,Total 0.7 mg/dL (0.2-1.3); Blood Urea Nitrogen 18 mg/dL (7-17); Calcium 9.4 mg/dL (8.4-10.2); Carbon Dioxide 28 mmol/L (22-30); Chloride 104 mmol/L (98-107); Estimated Glomerular Filt Rate 54; Glucose 123 mg/dL (65-110); Magnesium 1.6 mg/dL (1.6-2.3); Potassium 4.1 mmol/L (3.4-5.0); Sodium 139 mmol/L (137-145)
[2023-05-12 00:17] LABS: CA-125 1251 U/mL (<35)
== END 2023-05-09 07:06 | disposition home or self-care (01) ==
PROVIDERS: PCP Family Medicine
DX: C54.1 Malignant neoplasm of endometrium (principal)
CPT/HCPCS: 36415; 80053; 83735; 85025; 86304

== ENCOUNTER 2023-06-07 07:32 | Outpatient (CLI) | payer MEDICARE, OTHER, SELFPAY ==
[2023-06-07 08:14] LABS: Basophils Absolute Auto 0.1 K/mm3 (0.0-0.1); Basophils Percent Auto 0.8 % (0.2-1.2); Eosinophils Absolute Auto 0.1 K/mm3 (0-0.3); Eosinophils Percent Auto 1.2 % (0-4.4); Hematocrit 35.5 % (37.0-47.0); Immature Granulocyte Absolute 0.12 K/mm3 (0.00-0.031); Immature Granulocyte Percent A 1.3 % (0-0.5); Lymphocytes Absolute Auto 1.67 K/mm3 (0.9-3.2); Lymphocytes Percent Auto 18.3 % (18.3-44.2); Mean Corpuscular Hemoglobin 28.6 pg (26-34); Mean Corpuscular Volume 92.4 fl (80-100); Mean Platelet Volume 9.6 fl (7.4-10.4); Monocytes Absolute Auto 0.5 K/mm3 (0.1-0.6); Monocytes Percent Auto 5.8 % (2.6-8.5); Neutrophils Absolute Auto 6.6 K/mm3 (1.3-6.7); Neutrophils Percent Auto 72.6 % (45.5-73.1); Platelet Count Result 370 k/mm3 (150-375); Red Blood Count 3.84 M/mm3 (4.2-5.4); Red Cell Distribution Width 15.1 % (11.5-14.5); White Blood Count 9.1 K/mm3 (4.5-10.0)
[2023-06-07 08:26] LABS: Alanine Aminotransferase 27 U/L (6-35); Albumin Level 3.7 g/dL (3.5-5.1); Alkaline Phosphatase 110 U/L (38-126); Anion Gap 11 mmol/L (8-16); Aspartate Amino Transferase 28 U/L (14-36); Bilirubin,Total 0.5 mg/dL (0.2-1.3); Blood Urea Nitrogen 15 mg/dL (7-17); Calcium 9.2 mg/dL (8.4-10.2); Carbon Dioxide 25 mmol/L (22-30); Chloride 103 mmol/L (98-107); Estimated Glomerular Filt Rate > 60; Glucose 115 mg/dL (65-110); Magnesium 1.3 mg/dL (1.6-2.3); Phosphorus 3.6 mg/dL (2.5-4.5); Potassium 3.7 mmol/L (3.4-5.0); Sodium 139 mmol/L (137-145)
[2023-06-07 09:02] LABS: Thyroid Stimulating Hormone Reflex 0.516 uIU/mL (0.465-4.68)
[2023-06-15 09:56] LABS: CA-125 295
== END 2023-06-07 07:33 | disposition home or self-care (01) ==
PROVIDERS: PCP Family Medicine
DX: C54.1 Malignant neoplasm of endometrium (principal); E83.39 Other disorders of phosphorus metabolism; R94.6 Abnormal results of thyroid function studies
CPT/HCPCS: 36415; 80053; 83735; 84100; 84443; 85025; 86304

== ENCOUNTER 2023-06-27 07:30 | Outpatient (CLI) | payer MEDICARE, OTHER, SELFPAY ==
[2023-06-27 08:32] LABS: Basophils Absolute Auto 0.1 K/mm3 (0.0-0.1); Basophils Percent Auto 0.8 % (0.2-1.2); Hemoglobin 10.7 g/dL (12.0-15.0); Immature Granulocyte Absolute 0.27 K/mm3 (0.00-0.031); Immature Granulocyte Percent A 2.7 % (0-0.5); Lymphocytes Absolute Auto 1.33 K/mm3 (0.9-3.2); Lymphocytes Percent Auto 13.5 % (18.3-44.2); Mean Corpuscular HGB Conc 32.4 g/dl (32-36); Mean Corpuscular Hemoglobin 29.5 pg (26-34); Mean Corpuscular Volume 90.9 fl (80-100); Mean Platelet Volume 9.6 fl (7.4-10.4); Monocytes Absolute Auto 0.7 K/mm3 (0.1-0.6); Monocytes Percent Auto 6.9 % (2.6-8.5); Neutrophils Absolute Auto 7.5 K/mm3 (1.3-6.7); Neutrophils Percent Auto 76.1 % (45.5-73.1); Platelet Count Result 219 k/mm3 (150-375); Red Blood Count 3.63 M/mm3 (4.2-5.4); Red Cell Distribution Width 16.7 % (11.5-14.5); White Blood Count 9.9 K/mm3 (4.5-10.0)
[2023-06-27 08:47] LABS: Alanine Aminotransferase 22 U/L (6-35); Albumin Level 3.7 g/dL (3.5-5.1); Alkaline Phosphatase 104 U/L (38-126); Anion Gap 12 mmol/L (8-16); Aspartate Amino Transferase 29 U/L (14-36); Bilirubin,Total 0.8 mg/dL (0.2-1.3); Blood Urea Nitrogen 17 mg/dL (7-17); Calcium 9.6 mg/dL (8.4-10.2); Carbon Dioxide 24 mmol/L (22-30); Chloride 100 mmol/L (98-107); Estimated Glomerular Filt Rate 48; Glucose 130 mg/dL (65-110); Magnesium 1.6 mg/dL (1.6-2.3); Potassium 3.8 mmol/L (3.4-5.0); Sodium 136 mmol/L (137-145)
[2023-06-27 09:34] LABS: Thyroid Stimulating Hormone Reflex 0.686 uIU/mL (0.465-4.68)
[2023-07-02 01:34] LABS: CA-125 161 U/mL (<35)
== END 2023-06-27 07:31 | disposition home or self-care (01) ==
PROVIDERS: PCP Family Medicine
DX: C54.1 Malignant neoplasm of endometrium (principal); R94.6 Abnormal results of thyroid function studies
CPT/HCPCS: 36415; 80053; 83735; 84443; 85025; 86304

== ENCOUNTER 2023-07-18 07:15 | Outpatient (CLI) | payer MEDICARE, OTHER, SELFPAY ==
[2023-07-18 08:14] LABS: Basophils Absolute Auto 0.1 K/mm3 (0.0-0.1); Basophils Percent Auto 0.5 % (0.2-1.2); Eosinophils Percent Auto 0.2 % (0-4.4); Hematocrit 33.1 % (37.0-47.0); Hemoglobin 10.5 g/dL (12.0-15.0); Immature Granulocyte Absolute 0.13 K/mm3 (0.00-0.031); Immature Granulocyte Percent A 1.2 % (0-0.5); Lymphocytes Absolute Auto 1.83 K/mm3 (0.9-3.2); Lymphocytes Percent Auto 16.5 % (18.3-44.2); Mean Corpuscular HGB Conc 31.7 g/dl (32-36); Mean Corpuscular Hemoglobin 30.5 pg (26-34); Mean Corpuscular Volume 96.2 fl (80-100); Mean Platelet Volume 10.3 fl (7.4-10.4); Monocytes Absolute Auto 0.7 K/mm3 (0.1-0.6); Neutrophils Absolute Auto 8.4 K/mm3 (1.3-6.7); Neutrophils Percent Auto 75.6 % (45.5-73.1); Platelet Count Result 134 k/mm3 (150-375); Red Blood Count 3.44 M/mm3 (4.2-5.4); Red Cell Distribution Width 18.7 % (11.5-14.5); White Blood Count 11.1 K/mm3 (4.5-10.0)
[2023-07-18 08:16] LABS: Alanine Aminotransferase 18 U/L (6-35); Albumin Level 3.9 g/dL (3.5-5.1); Alkaline Phosphatase 108 U/L (38-126); Anion Gap 9 mmol/L (8-16); Aspartate Amino Transferase 30 U/L (14-36); Bilirubin,Total 0.8 mg/dL (0.2-1.3); Blood Urea Nitrogen 16 mg/dL (7-17); Calcium 9.3 mg/dL (8.4-10.2); Carbon Dioxide 24 mmol/L (22-30); Chloride 103 mmol/L (98-107); Estimated Glomerular Filt Rate 54; Glucose 116 mg/dL (65-110); Magnesium 1.4 mg/dL (1.6-2.3); Potassium 3.7 mmol/L (3.4-5.0); Sodium 136 mmol/L (137-145)
[2023-07-18 08:48] LABS: Thyroid Stimulating Hormone 0.817 uIU/mL (0.465-4.680)
[2023-07-20 02:18] LABS: CA-125 52 U/mL (<35)
== END 2023-07-18 07:16 | disposition home or self-care (01) ==
LOC: ANHLAB 07:19
PROVIDERS: PCP Family Medicine; Visit Provider Obstetrics & Gynecology Gynecologic Oncology
DX: C54.1 Malignant neoplasm of endometrium (principal); R94.6 Abnormal results of thyroid function studies
CPT/HCPCS: 36415; 80053; 83735; 84443; 85025; 86304

== ENCOUNTER 2023-08-09 07:12 | Outpatient (CLI) | payer MEDICARE, OTHER, SELFPAY ==
[2023-08-09 08:15] LABS: Basophils Percent Auto 0.6 % (0.2-1.2); Eosinophils Percent Auto 0.3 % (0-4.4); Hemoglobin 10.1 g/dL (12.0-15.0); Immature Granulocyte Absolute 0.05 K/mm3 (0.00-0.031); Immature Granulocyte Percent A 0.8 % (0-0.5); Lymphocytes Absolute Auto 1.12 K/mm3 (0.9-3.2); Lymphocytes Percent Auto 17.3 % (18.3-44.2); Mean Corpuscular HGB Conc 31.6 g/dl (32-36); Mean Corpuscular Hemoglobin 31.6 pg (26-34); Mean Platelet Volume 9.8 fl (7.4-10.4); Monocytes Absolute Auto 0.4 K/mm3 (0.1-0.6); Monocytes Percent Auto 6.3 % (2.6-8.5); Neutrophils Absolute Auto 4.9 K/mm3 (1.3-6.7); Neutrophils Percent Auto 74.7 % (45.5-73.1); Platelet Count Result 152 k/mm3 (150-375); Red Cell Distribution Width 18.4 % (11.5-14.5); White Blood Count 6.5 K/mm3 (4.5-10.0)
[2023-08-09 08:27] LABS: Alanine Aminotransferase 19 U/L (6-35); Albumin Level 3.8 g/dL (3.5-5.1); Alkaline Phosphatase 81 U/L (38-126); Anion Gap 8 mmol/L (8-16); Aspartate Amino Transferase 30 U/L (14-36); Bilirubin,Total 0.7 mg/dL (0.2-1.3); Blood Urea Nitrogen 10 mg/dL (7-17); Carbon Dioxide 25 mmol/L (22-30); Chloride 104 mmol/L (98-107); Estimated Glomerular Filt Rate > 60; Glucose 103 mg/dL (65-110); Magnesium 1.2 mg/dL (1.6-2.3); Potassium 3.7 mmol/L (3.4-5.0); Sodium 137 mmol/L (137-145)
[2023-08-12 02:44] LABS: CA-125 31 U/mL (<35)
== END 2023-08-09 07:13 | disposition home or self-care (01) ==
LOC: ANHLAB 07:21
PROVIDERS: PCP Family Medicine; Visit Provider Obstetrics & Gynecology Gynecologic Oncology
DX: C54.1 Malignant neoplasm of endometrium (principal); R94.6 Abnormal results of thyroid function studies
CPT/HCPCS: 36415; 80053; 83735; 84443; 85025; 86304

== ENCOUNTER 2023-08-09 10:15 | Outpatient (RCR) | payer MEDICARE, OTHER, SELFPAY ==
--- NOTE | 2023-08-02 13:30 | OPREHPOC ---
Outpatient Therapy Plan of Care This is a Multidisciplinary Plan of Care that may contain components documented by all disciplines (PT, OT, and ST.) PT Problem 1 PT Problem #1 Knowledge Deficit PT Goal 1 Goal *indep with HEP PT Problem 2 PT Problem #2 Pain PT Goal 1 Goal * monitor pain in legs during sessions PT Problem 3 PT Problem #3 Impaired Strength PT Goal 1 Goal increase LE strength, to improve gait and balance ability: 1* pt perform R and L LE mat exercises 20 reps with good control of motions PT Problem 4 PT Problem #4 Impaired Functional Mobility PT Goal 1 Goal 1* supine to sit indep 2* 5 reps sit/stand time of 16 seconds 3* Tinetti balance/gait score of 26/28 4* 2 minute walking test distance of 325' 5* pt report NO falls 6* pt up/down 12 steps with 1 hand railing, indep
--- NOTE | 2023-08-02 13:30 | PTOPEVAL1 ---
Assessment and note entered by Mahogany Reid, PT Evaluation Information Assessment Status Evaluation Diagnosis peripheral neuropathy/ decreased gait and balance Onset Apr 2023 Subjective Information more problems with peripheral neuropathy and walking/balance since started chemotherapy; continue to have chemo treatments, not sure how many more have to have; have had one fall in the past month- fell forward and landed on her knees; is not doing any exercises, fatigued from chemo and not doing much; have not been eating well, not hungry and foods do not taste right; was admitted to ER to due the fall, dehydration and BP changes. Activity: live with at home, have basement but can avoid; prior to April-- indep with all home and self care tasks; since April-- assist with bathing and dressing--due to balance and fatigue; and daughter doing all home tasks; have wheeled walker at home, started using after falling last week; GOAL: to increase strength of legs and balance; Reported Pain Level Pain Score 2: Self Report Additional Pain Score Comments pins and needles over feet, ankles; changes and feels like 1 padding and tight over feet and numb - cannot feel things on feet; increase to 8/10; have cold socks--help when really hurting; Assessment PT Clinical Summary Gloria has the diagnosis of peripheral neuropathy from chemotherapy, with decreased gait skills. She continues to have chemotherapy treatments every 3 weeks. Her Rashi, was present during eval and supportive to pt. Since starting chemotherapy, she has not felt well and decreased activity level, with a recent fall. is assisting with bathing, dressing and home tasks. With the evaluation: 5 reps sit/stand time of 21 seconds; Tinetti balance score of 20/28= high risk for falls, 2 minute walking test--250' and had to stop at 1 minute & 28 seconds due to SOB and fatigue; weakness
--- NOTE | 2023-08-19 10:11 | PCPTNOTE ---
pt called and canceled due to illness.
--- NOTE | 2023-08-26 11:42 | PTOPDC ---
Assessment and note entered by Mahogany Reid, PT Discharge Information Assessment Status Discharge - Pt Not Present Diagnosis peripheral neuropathy/ decreased gait and balance Onset Apr 2023 Subjective Information pt called and canceled appointments Assessment PT Clinical Summary Gloria has received 3 PT sessions. She called and canceled her out pt PT due to going to have Home Health Care services. The goals were not addressed. Discharge PT services, due to a decline in her status and going to receive [facility]. Plan of Care PT Services Indicated No
== END 2023-08-26 14:28 | disposition home or self-care (01) ==
LOC: ANHPT 10:15
PROVIDERS: PCP Family Medicine; Visit Provider Obstetrics & Gynecology Gynecologic Oncology
DX: G62.0 Drug-induced polyneuropathy (principal); T45.1X5A Adverse effect of antineoplastic and immunosuppressive drugs, initial encounter; C54.1 Malignant neoplasm of endometrium
CPT/HCPCS: 36415; 80053; 83735; 84443; 85025; 86304; 97110; 97112; 97161; 97530

== ENCOUNTER 2023-08-30 07:41 | Outpatient (CLI) | payer MEDICARE, OTHER, SELFPAY ==
[2023-08-30 08:33] LABS: Alanine Aminotransferase 25 U/L (6-35); Albumin Level 3.8 g/dL (3.5-5.1); Alkaline Phosphatase 118 U/L (38-126); Anion Gap 9 mmol/L (4-12); Aspartate Amino Transferase 29 U/L (14-36); Bilirubin,Total 0.7 mg/dL (0.2-1.3); Blood Urea Nitrogen 9 mg/dL (7-17); Calcium 9.1 mg/dL (8.4-10.2); Carbon Dioxide 23 mmol/L (22-30); Chloride 104 mmol/L (98-107); Estimated Glomerular Filt Rate > 60; Glucose 107 mg/dL (65-110); Magnesium 1.4 mg/dL (1.6-2.3); Sodium 136 mmol/L (137-145)
[2023-08-30 08:34] LABS: Basophils Percent Auto 0.4 % (0.2-1.2); Eosinophils Percent Auto 0.1 % (0-4.4); Hematocrit 32.8 % (37.0-47.0); Hemoglobin 10.4 g/dL (12.0-15.0); Immature Granulocyte Absolute 0.05 K/mm3 (0.00-0.031); Immature Granulocyte Percent A 0.7 % (0-0.5); Lymphocytes Absolute Auto 1.51 K/mm3 (0.9-3.2); Lymphocytes Percent Auto 20.7 % (18.3-44.2); Mean Corpuscular HGB Conc 31.7 g/dl (32-36); Mean Corpuscular Hemoglobin 32.5 pg (26-34); Mean Corpuscular Volume 102.5 fl (80-100); Mean Platelet Volume 10.2 fl (7.4-10.4); Monocytes Absolute Auto 0.5 K/mm3 (0.1-0.6); Monocytes Percent Auto 6.6 % (2.6-8.5); Neutrophils Absolute Auto 5.2 K/mm3 (1.3-6.7); Neutrophils Percent Auto 71.5 % (45.5-73.1); Platelet Count Result 136 k/mm3 (150-375); Red Cell Distribution Width 17.2 % (11.5-14.5); White Blood Count 7.3 K/mm3 (4.5-10.0)
[2023-09-03 23:06] LABS: CA-125 26 U/mL (<35)
== END 2023-08-30 07:42 | disposition home or self-care (01) ==
LOC: ANHLAB 07:47
PROVIDERS: PCP Family Medicine; Visit Provider Obstetrics & Gynecology Gynecologic Oncology
DX: C54.1 Malignant neoplasm of endometrium (principal)
CPT/HCPCS: 36415; 80053; 83735; 85025; 86304

== ENCOUNTER 2023-09-12 06:57 | Outpatient (CLI) | payer MEDICARE, OTHER, SELFPAY ==
[2023-09-12 07:44] LABS: Basophils Percent Auto 0.4 % (0.2-1.2); Eosinophils Absolute Auto 0.1 K/mm3 (0-0.3); Eosinophils Percent Auto 0.7 % (0-4.4); Hematocrit 32.6 % (37.0-47.0); Hemoglobin 10.4 g/dL (12.0-15.0); Immature Granulocyte Absolute 0.15 K/mm3 (0.00-0.031); Immature Granulocyte Percent A 2.2 % (0-0.5); Lymphocytes Percent Auto 18.8 % (18.3-44.2); Mean Corpuscular HGB Conc 31.9 g/dl (32-36); Mean Corpuscular Volume 103.5 fl (80-100); Mean Platelet Volume 9.9 fl (7.4-10.4); Monocytes Absolute Auto 0.6 K/mm3 (0.1-0.6); Monocytes Percent Auto 8.5 % (2.6-8.5); Neutrophils Absolute Auto 4.8 K/mm3 (1.3-6.7); Neutrophils Percent Auto 69.4 % (45.5-73.1); Platelet Count Result 201 k/mm3 (150-375); Red Blood Count 3.15 M/mm3 (4.2-5.4); Red Cell Distribution Width 15.9 % (11.5-14.5); White Blood Count 6.9 K/mm3 (4.5-10.0)
[2023-09-12 07:49] LABS: Alanine Aminotransferase 16 U/L (6-35); Albumin Level 3.7 g/dL (3.5-5.1); Alkaline Phosphatase 72 U/L (38-126); Anion Gap 6 mmol/L (4-12); Aspartate Amino Transferase 30 U/L (14-36); Bilirubin,Total 0.7 mg/dL (0.2-1.3); Blood Urea Nitrogen 10 mg/dL (7-17); Calcium 9.5 mg/dL (8.4-10.2); Carbon Dioxide 26 mmol/L (22-30); Chloride 108 mmol/L (98-107); Estimated Glomerular Filt Rate > 60; Glucose 98 mg/dL (65-110); Magnesium 1.3 mg/dL (1.6-2.3); Potassium 4.2 mmol/L (3.4-5.0); Sodium 140 mmol/L (137-145)
[2023-09-14 00:54] LABS: Free T4 Q 1.2 ng/dL (0.8-1.8)
[2023-09-16 07:28] LABS: CA-125 21
[2023-09-16 12:33] LABS: Thyroid Peroxidase Antibodies <1 IU/mL (<9)
[2023-09-16 14:54] LABS: TSH QUEST 0.78 mIU/L (0.40-4.50)
== END 2023-09-12 06:58 | disposition home or self-care (01) ==
LOC: ANHLAB 07:01
PROVIDERS: PCP Family Medicine; Visit Provider Obstetrics & Gynecology Gynecologic Oncology
DX: C54.1 Malignant neoplasm of endometrium (principal); R94.6 Abnormal results of thyroid function studies
CPT/HCPCS: 36415; 80053; 83735; 84481; 85025; 86304; 86376

== ENCOUNTER 2023-10-04 07:56 | Outpatient (CLI) | payer MEDICARE, OTHER, SELFPAY ==
[2023-10-04 08:26] LABS: Basophils Percent Auto 0.4 % (0.2-1.2); Eosinophils Absolute Auto 0.1 K/mm3 (0-0.3); Hematocrit 34.1 % (37.0-47.0); Hemoglobin 10.9 g/dL (12.0-15.0); Immature Granulocyte Absolute 0.02 K/mm3 (0.00-0.031); Immature Granulocyte Percent A 0.4 % (0-0.5); Lymphocytes Absolute Auto 1.59 K/mm3 (0.9-3.2); Lymphocytes Percent Auto 29.1 % (18.3-44.2); Mean Corpuscular Hemoglobin 32.5 pg (26-34); Mean Corpuscular Volume 101.8 fl (80-100); Mean Platelet Volume 10.2 fl (7.4-10.4); Monocytes Absolute Auto 0.4 K/mm3 (0.1-0.6); Monocytes Percent Auto 6.4 % (2.6-8.5); Neutrophils Absolute Auto 3.4 K/mm3 (1.3-6.7); Neutrophils Percent Auto 61.7 % (45.5-73.1); Platelet Count Result 155 k/mm3 (150-375); Red Blood Count 3.35 M/mm3 (4.2-5.4); Red Cell Distribution Width 13.2 % (11.5-14.5); White Blood Count 5.5 K/mm3 (4.5-10.0)
[2023-10-04 08:35] LABS: Alanine Aminotransferase 18 U/L (6-35); Albumin Level 3.9 g/dL (3.5-5.1); Alkaline Phosphatase 91 U/L (38-126); Anion Gap 4 mmol/L (4-12); Aspartate Amino Transferase 31 U/L (14-36); Bilirubin,Total 0.6 mg/dL (0.2-1.3); Blood Urea Nitrogen 17 mg/dL (7-17); Calcium 9.6 mg/dL (8.4-10.2); Carbon Dioxide 28 mmol/L (22-30); Chloride 106 mmol/L (98-107); Estimated Glomerular Filt Rate 54; Glucose 111 mg/dL (65-110); Magnesium 1.5 mg/dL (1.6-2.3); Potassium 4.2 mmol/L (3.4-5.0); Sodium 138 mmol/L (137-145)
[2023-10-06 10:28] LABS: TSH QUEST 0.86 mIU/L (0.40-4.50)
[2023-10-07 22:43] LABS: CA-125 16 U/mL (<35)
== END 2023-10-04 07:57 | disposition home or self-care (01) ==
LOC: ANHLAB 08:00
PROVIDERS: PCP Family Medicine; Visit Provider Obstetrics & Gynecology Gynecologic Oncology
DX: C54.1 Malignant neoplasm of endometrium (principal); R94.6 Abnormal results of thyroid function studies
CPT/HCPCS: 36415; 80053; 83735; 84481; 85025; 86304; 86376

== ENCOUNTER 2023-10-24 07:16 | Outpatient (CLI) | payer MEDICARE, OTHER, SELFPAY ==
[2023-10-24 07:59] LABS: Basophils Percent Auto 0.4 % (0.2-1.2); Eosinophils Absolute Auto 0.1 K/mm3 (0-0.3); Eosinophils Percent Auto 1.7 % (0-4.4); Hematocrit 35.2 % (37.0-47.0); Hemoglobin 11.2 g/dL (12.0-15.0); Immature Granulocyte Absolute 0.01 K/mm3 (0.00-0.031); Immature Granulocyte Percent A 0.2 % (0-0.5); Lymphocytes Absolute Auto 1.61 K/mm3 (0.9-3.2); Lymphocytes Percent Auto 30.7 % (18.3-44.2); Mean Corpuscular HGB Conc 31.8 g/dl (32-36); Mean Corpuscular Hemoglobin 31.8 pg (26-34); Mean Platelet Volume 10.3 fl (7.4-10.4); Monocytes Absolute Auto 0.3 K/mm3 (0.1-0.6); Monocytes Percent Auto 6.3 % (2.6-8.5); Neutrophils Absolute Auto 3.2 K/mm3 (1.3-6.7); Neutrophils Percent Auto 60.7 % (45.5-73.1); Platelet Count Result 140 k/mm3 (150-375); Red Blood Count 3.52 M/mm3 (4.2-5.4); Red Cell Distribution Width 12.6 % (11.5-14.5); White Blood Count 5.2 K/mm3 (4.5-10.0)
[2023-10-24 08:16] LABS: Alanine Aminotransferase 16 U/L (6-35); Albumin Level 3.9 g/dL (3.5-5.1); Alkaline Phosphatase 81 U/L (38-126); Anion Gap 4 mmol/L (4-12); Aspartate Amino Transferase 30 U/L (14-36); Bilirubin,Total 0.7 mg/dL (0.2-1.3); Blood Urea Nitrogen 17 mg/dL (7-17); Calcium 9.5 mg/dL (8.4-10.2); Carbon Dioxide 26 mmol/L (22-30); Chloride 109 mmol/L (98-107); Estimated Glomerular Filt Rate 54; Glucose 111 mg/dL (65-110); Magnesium 1.5 mg/dL (1.6-2.3); Potassium 4.1 mmol/L (3.4-5.0); Sodium 139 mmol/L (137-145)
[2023-10-25 12:39] LABS: CA-125 18 U/mL (<35)
[2023-10-26 02:43] LABS: Triiodothyronine T3 Free 3.5 pg/mL (2.3-4.2)
[2023-10-26 05:39] LABS: TSH QUEST 0.84 mIU/L (0.40-4.50)
== END 2023-10-24 07:17 | disposition home or self-care (01) ==
LOC: ANHLAB 07:23
PROVIDERS: PCP Family Medicine; Visit Provider Obstetrics & Gynecology Gynecologic Oncology
DX: C54.1 Malignant neoplasm of endometrium (principal); R94.6 Abnormal results of thyroid function studies
CPT/HCPCS: 36415; 80053; 83735; 84481; 85025; 86304; 86376

== ENCOUNTER 2023-11-15 07:20 | Outpatient (CLI) | payer MEDICARE, OTHER, SELFPAY ==
[2023-11-15 08:17] LABS: Alanine Aminotransferase 19 U/L (6-35); Albumin Level 4.3 g/dL (3.5-5.1); Alkaline Phosphatase 107 U/L (38-126); Anion Gap 8 mmol/L (4-12); Aspartate Amino Transferase 30 U/L (14-36); Bilirubin,Total 0.6 mg/dL (0.2-1.3); Blood Urea Nitrogen 19 mg/dL (7-17); Calcium 9.6 mg/dL (8.4-10.2); Carbon Dioxide 26 mmol/L (22-30); Chloride 105 mmol/L (98-107); Estimated Glomerular Filt Rate 54; Glucose 111 mg/dL (65-110); Magnesium 1.7 mg/dL (1.6-2.3); Potassium 4.2 mmol/L (3.4-5.0); Sodium 139 mmol/L (137-145)
[2023-11-15 08:53] LABS: Basophils Percent Auto 0.3 % (0.2-1.2); Eosinophils Absolute Auto 0.1 K/mm3 (0-0.3); Eosinophils Percent Auto 1.7 % (0-4.4); Hematocrit 37.9 % (37.0-47.0); Hemoglobin 12.1 g/dL (12.0-15.0); Immature Granulocyte Absolute 0.02 K/mm3 (0.00-0.031); Immature Granulocyte Percent A 0.3 % (0-0.5); Lymphocytes Absolute Auto 1.58 K/mm3 (0.9-3.2); Lymphocytes Percent Auto 24.6 % (18.3-44.2); Mean Corpuscular HGB Conc 31.9 g/dl (32-36); Mean Corpuscular Hemoglobin 30.9 pg (26-34); Mean Corpuscular Volume 96.7 fl (80-100); Mean Platelet Volume 10.8 fl (7.4-10.4); Monocytes Absolute Auto 0.4 K/mm3 (0.1-0.6); Monocytes Percent Auto 5.5 % (2.6-8.5); Neutrophils Absolute Auto 4.3 K/mm3 (1.3-6.7); Neutrophils Percent Auto 67.6 % (45.5-73.1); Platelet Count Result 164 k/mm3 (150-375); Red Blood Count 3.92 M/mm3 (4.2-5.4); Red Cell Distribution Width 12.7 % (11.5-14.5); White Blood Count 6.4 K/mm3 (4.5-10.0)
[2023-11-17 12:19] LABS: TSH QUEST 0.67 mIU/L (0.40-4.50)
[2023-11-19 07:23] LABS: CA-125 29 U/mL (<35)
== END 2023-11-15 07:21 | disposition home or self-care (01) ==
LOC: ANHLAB 07:24
PROVIDERS: PCP Family Medicine; Visit Provider Obstetrics & Gynecology Gynecologic Oncology
DX: C54.1 Malignant neoplasm of endometrium (principal); R94.6 Abnormal results of thyroid function studies
CPT/HCPCS: 36415; 80053; 83735; 84481; 85025; 86304; 86376

== ENCOUNTER 2023-12-05 07:06 | Outpatient (CLI) | payer MEDICARE, OTHER, SELFPAY ==
[2023-12-05 07:54] LABS: Basophils Percent Auto 0.3 % (0.2-1.2); Eosinophils Absolute Auto 0.2 K/mm3 (0-0.3); Eosinophils Percent Auto 2.6 % (0-4.4); Hematocrit 39.1 % (37.0-47.0); Hemoglobin 12.7 g/dL (12.0-15.0); Immature Granulocyte Absolute 0.02 K/mm3 (0.00-0.031); Immature Granulocyte Percent A 0.3 % (0-0.5); Lymphocytes Absolute Auto 1.59 K/mm3 (0.9-3.2); Lymphocytes Percent Auto 25.9 % (18.3-44.2); Mean Corpuscular HGB Conc 32.5 g/dl (32-36); Mean Corpuscular Hemoglobin 30.3 pg (26-34); Mean Corpuscular Volume 93.3 fl (80-100); Mean Platelet Volume 10.4 fl (7.4-10.4); Monocytes Absolute Auto 0.4 K/mm3 (0.1-0.6); Monocytes Percent Auto 6.2 % (2.6-8.5); Neutrophils Percent Auto 64.7 % (45.5-73.1); Platelet Count Result 163 k/mm3 (150-375); Red Blood Count 4.19 M/mm3 (4.2-5.4); Red Cell Distribution Width 12.9 % (11.5-14.5); White Blood Count 6.2 K/mm3 (4.5-10.0)
[2023-12-05 09:05] LABS: Alanine Aminotransferase 27 U/L (6-35); Albumin Level 4.1 g/dL (3.5-5.1); Alkaline Phosphatase 123 U/L (38-126); Anion Gap 11 mmol/L (4-12); Aspartate Amino Transferase 36 U/L (14-36); Bilirubin,Total 0.6 mg/dL (0.2-1.3); Blood Urea Nitrogen 19 mg/dL (7-17); Calcium 9.6 mg/dL (8.4-10.2); Carbon Dioxide 26 mmol/L (22-30); Chloride 104 mmol/L (98-107); Estimated Glomerular Filt Rate 54; Glucose 113 mg/dL (65-110); Magnesium 1.8 mg/dL (1.6-2.3); Potassium 4.2 mmol/L (3.4-5.0); Sodium 141 mmol/L (137-145)
[2023-12-06 09:03] LABS: CA-125 63 U/mL (<35)
[2023-12-07 01:59] LABS: TSH QUEST 0.95 mIU/L (0.40-4.50)
== END 2023-12-05 07:07 | disposition home or self-care (01) ==
LOC: ANHLAB 07:12
PROVIDERS: PCP Family Medicine; Visit Provider Obstetrics & Gynecology Gynecologic Oncology
DX: C54.1 Malignant neoplasm of endometrium (principal); R94.6 Abnormal results of thyroid function studies
CPT/HCPCS: 36415; 80053; 83735; 84481; 85025; 86304; 86376

== ENCOUNTER 2024-02-06 10:28 | Outpatient (CLI) | payer MEDICARE, OTHER, SELFPAY ==
[2024-02-06 11:41] LABS: Basophils Percent Auto 0.3 % (0.2-1.2); Eosinophils Absolute Auto 0.1 K/mm3 (0-0.3); Eosinophils Percent Auto 1.6 % (0-4.4); Hematocrit 38.2 % (37.0-47.0); Immature Granulocyte Absolute 0.03 K/mm3 (0.00-0.031); Immature Granulocyte Percent A 0.5 % (0-0.5); Lymphocytes Absolute Auto 1.52 K/mm3 (0.9-3.2); Lymphocytes Percent Auto 24.1 % (18.3-44.2); Mean Corpuscular HGB Conc 31.4 g/dl (32-36); Mean Corpuscular Hemoglobin 29.3 pg (26-34); Mean Corpuscular Volume 93.4 fl (80-100); Mean Platelet Volume 10.3 fl (7.4-10.4); Monocytes Absolute Auto 0.4 K/mm3 (0.1-0.6); Monocytes Percent Auto 6.2 % (2.6-8.5); Neutrophils Absolute Auto 4.3 K/mm3 (1.3-6.7); Neutrophils Percent Auto 67.3 % (45.5-73.1); Platelet Count Result 167 k/mm3 (150-375); Red Blood Count 4.09 M/mm3 (4.2-5.4); Red Cell Distribution Width 13.9 % (11.5-14.5); White Blood Count 6.3 K/mm3 (4.5-10.0)
[2024-02-06 12:00] LABS: Alanine Aminotransferase 19 U/L (6-35); Albumin Level 3.9 g/dL (3.5-5.1); Alkaline Phosphatase 117 U/L (38-126); Anion Gap 8 mmol/L (4-12); Aspartate Amino Transferase 37 U/L (14-36); Bilirubin,Total 0.6 mg/dL (0.2-1.3); Blood Urea Nitrogen 17 mg/dL (7-17); Calcium 9.3 mg/dL (8.4-10.2); Carbon Dioxide 25 mmol/L (22-30); Chloride 105 mmol/L (98-107); Estimated Glomerular Filt Rate 44; Glucose 121 mg/dL (65-110); Magnesium 1.6 mg/dL (1.6-2.3); Sodium 138 mmol/L (137-145)
[2024-02-08 05:40] LABS: CA-125 466 U/mL (<35)
== END 2024-02-06 10:29 | disposition home or self-care (01) ==
LOC: ANHLAB 10:34
PROVIDERS: PCP Family Medicine; Visit Provider Obstetrics & Gynecology Gynecologic Oncology
DX: C54.1 Malignant neoplasm of endometrium (principal)
CPT/HCPCS: 36415; 80053; 83735; 85025; 86304

== ENCOUNTER 2024-03-26 15:27 | Emergency (ER) | payer MEDICARE, OTHER, SELFPAY ==
--- NOTE | ~2024-03-26 | CT_ITS ---
Clinical Indication: Metastatic endometrial cancer, vaginal bleeding CT Scan of the Chest, Abdomen, and Pelvis with Contrast: Technique: Contiguous sections were acquired throughout the chest, abdomen, and pelvis after intraven ous administration of 100 cc of Omnipaque 350. Dose reduction technique was used on this scan by jeet cohen automated exposure control and iterative reconstruction technique. The dose-length product (DL P) was 1594.29 mGy-cm. Comparison: 04/24/2023, 04/11/2023 Findings: There is no evidence of any significant mediastinal, hilar or axillary lymphadenopathy. The mediastin al soft tissues and vascular structures appear normal. There is no evidence of pleural or pericardial effusion. There are multiple scattered subcentimeter pulmonary nodules measuring up to 6 mm in maximum diameter , increased in size and number since prior exam. Multiple hepatic metastases are present, with increase in size of lesions since prior exam. Largest l esion adjacent to the falciform ligament now measures up to approximately 7.0 x 4.5 cm in extent. The spleen, pancreas, gallbladder, adrenals and kidneys are within normal limits. There are atherosclero tic calcifications of the aorta. No lymphadenopathy. No bowel obstruction or bowel wall thickening. Several scattered peritoneal metastatic images are pre sent, largest in the left upper quadrant measuring 2.6 cm in diameter (axial image 141), new from ryan or exam.. Urinary bladder is unremarkable. Stable calcified uterine fibroid centimeters. There is a 3.8 cm roun d, heterogeneous left adnexal mass (axial image 1), somewhat unclear whether this is exophytic from t he uterus versus left ovarian in nature. This is new since prior exam. There are a few scattered sclerotic lesions, most notably in the right iliac wing, and in the T7 and T9 vertebral bodies, which could reflect metastatic lesions. Impression: Interval progression of disease from prior exam. Hepatic and pulmonary metastases are increased in si ze and number. There are new scattered peritoneal metastatic implants, as detailed above. Several xiomara pected sclerotic osseous metastases are also now present, as noted above. New 3.8 cm left adnexal mass, which could reflect an exophytic uterine lesion versus left ovarian les ion. Metastatic lesion is a consideration. Calcified uterine fibroid and heterogeneous appearance of the endometrium, similar to prior exam. Reviewed, dictated and finalized at location M. Impression: Interval progression of disease from prior exam. Hepatic and pulmonary metastas es are increased in size and number. There are new scattered peritoneal metasta tic implants, as detailed above. Several suspected sclerotic osseous metastases are also now present, as noted above. New 3.8 cm left adnexal mass, which could reflect an exophytic uterine lesion v ersus left ovarian lesion. Metastatic lesion is a consideration. Calcified uterine fibroid and heterogeneous appearance of the endometrium, gabino lar to prior exam.
[2024-03-26 15:50] VITALS: BP 136/87; PULSE 77; RESP 16; TEMP 36.6; O2SAT 98
--- NOTE | 2024-03-26 16:50 | ED.FEMALEGU ---
HPI - Female Genitourinary General Chief complaint: Vaginal Bleeding <Joanna Ortez PA-C - Last Filed: 03/27/24 13:31> Stated complaint: VAG BLEEDING SINCE 1414 <Joanna Ortez PA-C - Last Filed: 03/27/24 13:31> Time Seen by Provider: 03/26/24 16:50 <Joanna Ortez PA-C - Last Filed: 03/27/24 13:31> Focused HPI: This is a 78 year old female that presents to the ER for vaginal bleeding. Ongoing since this afternoon. Reports history of endometrial cancer. Her doctor is at [facility]. She has had chemotherapy and immunotherapy this year. No surgery. Reports her cancer kept advancing and she was told there was nothing else to do. She has had spotting with this before. Today's bleeding was more severe which prompted her to be seen. Reports some cramping. Denies fever, or dysuria. GENERAL: Well-appearing, well-nourished, and in no acute distress. HEAD: Normocephalic, atraumatic. CHEST: Clear to auscultation. ?No respiratory distress. HEART: Regular rate and rhythm.? NEURO: ?Alert and oriented x3. Patient screened in triage and initial orders placed.? ?Additional care and disposition to be based upon?diagnostic testing and treatment. <Joanna Ortez PA-C - Last Filed: 03/27/24 13:31> Focused HPI: This is a 78 year old female that presents to the ER for vaginal bleeding. Ongoing since this afternoon. Reports history of endometrial cancer. Her doctor is at [facility]. She has had chemotherapy and immunotherapy this year. No surgery. Reports her cancer kept advancing and she was told there was nothing else to do. She has had spotting with this before. Today's bleeding was more severe which prompted her to be seen. Reports some cramping. Denies fever, or dysuria. GENERAL: Well-appearing, well-nourished, and in no acute distress. HEAD: Normocephalic, atraumatic. CHEST: Clear to auscultation. ?No respiratory distress. HEART: Regular rate and rhythm.? NEURO: ?Alert and oriented x3. Patient screened in triage and initial orders placed.? ?Additional care and disposition to be based upon?diagnostic testing and treatment. <NANCY Watters Last Filed: 03/27/24 03:31> Source: patient <NANCY Watters Last Filed: 03/27/24 03:31> Mode of arrival: ambulatory <NANCY Watters Last Filed: 03/27/24 03:31> Limitations: no limitations <NANCY Watters Last Filed: 03/27/24 03:31> History of Present Illness HPI Narrative: Agree with above HPI. Stage 4 endometrial CA. Mets to liver and lung. Oncologist is Dr. Ramirez with [facility]. Reports she has stops treatment since earlier this year. She has been passing blood clots today. Denies dizziness, lightheadedness, dysuria, hematuria, rectal bleeding. Patient is on Eliquis. <NANCY Watters Last Filed: 03/27/24 03:31> Related Data Home medications: Home Medications Medication Instructions Recorded Confirmed apixaban 5 mg tablet 5 mg PO BID 09/05/23 09/05/23 famotidine 20 mg tablet 20 mg PO DAILY 09/05/23 09/05/23 magnesium oxide 400 mg PO DAILY 09/05/23 09/05/23 pantoprazole 40 mg tablet,delayed 40 mg PO QAM 09/05/23 09/05/23 release pyridoxine (vitamin B6) 25 mg 25 mg PO DAILY 09/05/23 09/05/23 tablet sodium chloride 1,000 mg soluble 1,000 mg PO DAILY 09/05/23 09/05/23 tablet <NANCY Durant Last Filed: 03/27/24 13:31> Allergies/Adverse reactions: Allergies Allergy/AdvReac Type Severity Reaction Status Date / Time Sulfa (Sulfonamide Allergy Intermediate rash Verified 09/05/23 08:34 Antibiotics) <NANCY Durant Last Filed: 03/27/24 13:31> Review of Systems Review of Systems: All systems reviewed & are unremarkable except as noted in HPI. <NANCY Watters Last Filed: 03/27/24 03:31> All systems reviewed & are unremarkable except as noted in HPI and below <Ju Fowler PA-C - Last Filed: 03/27/24 03:31> [facility] Past Medical History Medical History: Medical History Back pain of lumbosacral region with sciatica Benign systolic hypertension BMI 36.0-36.9,adult CKD (chronic kidney disease) COVID-19 Hyperglycemia Mixed hyperlipidemia Obesity Parotiditis Postmenopausal bleeding Rhinosinusitis Right shoulder pain Sacroiliac dysfunction Skin lesion Stress at home URI (upper respiratory infection) <Joanna Ortez PA-C - Last Filed: 03/27/24 13:31> Surgical History Surgical History: Surgical History History of hysteroscopy D & C History of total knee arthroplasty Hx of cholecystectomy Status post total shoulder arthroplasty <Joanna Ortez PA-C - Last Filed: 03/27/24 13:31> Family History Family History: Family History Father Hypertension Family history of elevated blood lipids Patient's father is Mother Hypertension Family history of elevated blood lipids Other Family history of malignant neoplasm <Joanna Ortez PA-C - Last Filed: 03/27/24 13:31> Social History Social History: Social History Social History: Smoking status: Never smoker Second hand tobacco smoke exposure: No Alcohol intake: former Substance use: never Substance use type: does not use Do You Feel Safe in your Home?: Yes Lack of Transportation: No Lack of Food: Never True Current Housing: I Have Housing Concerned About Future Housing: No Difficulty Paying Gas/Electric Bills: No Difficulty Paying for Meds: No Currently Unemployed: YES Education: Decline to Answer Difficulty w/ Childcare or Family Care: No Living arrangements: with family Occupation/Education: retired Gender identity (if verbalized by the patient): Female Sexual Orientation (if Verbalized by the Patient): Straight or Heterosexual Spiritual care concerns: No <Joanna Ortez PA-C - Last Filed: 03/27/24 13:31> Exam Narrative: GENERAL: Elderly but well appearing, obese with BMI of 35.1, non-toxic, in no acute distress. HEAD: Normocephalic, atraumatic. RESPIRATORY: Airway patent, respirations nonlabored. Clear to auscultation bilaterally, no rales, rhonchi, wheezing. CARDIOVASCULAR: Regular rate and rhythm without murmurs, rubs, or gallops. ABDOMINAL: Soft, no significant tenderness throughout abdomen, nondistended. Normoactive BS. PELVIC: Normal external genitalia. Mild amount of dark red bleeding present in vaginal vault. No significant clots noted. Cervix appears unremarkable. MUSCULOSKELETAL: Moves all extremities. No gross deformities. SKIN: Warm, dry, normal color. NEURO: A&O X3. Speech clear. Cranial nerves II-XII grossly intact. No ataxic movements. No focal deficits. PSYCHIATRIC: Appropriate mood and affect. Normal interaction. <Ju Fowler PA-C - Last Filed: 03/27/24 03:31> Course SHEET WRITER/PA Physician Supervision I agree with midlevel documentation; I performed the medical decision making component of this evaluation. <Gracia Gutierrez MD - Last Filed: 03/27/24 06:01> Reevaluation(s) Reevaluation #1: on re-evaluation patient well-appearing. No increased bleeding. CT showing known mass with metastases without any other acute abnormality. She is comfortable with outpatient management, at bedside. Return precautions provided. Stable for discharg <Gracia Gutierrez MD - Last Filed: 03/27/24 06:01> Vital Signs Vital signs: Vital Signs Temperature 97.9 F 03/26/24 15:50 Pulse Rate 77 03/26/24 15:50 Respiratory Rate 16 03/26/24 15:50 Blood Pressure 136/87 03/26/24 15:50 Pulse Oximetry 98 03/26/24 15:50 Oxygen Delivery Room Air 03/26/24 15:50 Temperature 97.9 F 03/26/24 15:50 Pulse Rate 79 03/27/24 06:32 Respiratory Rate 16 03/27/24 06:32 Blood Pressure 128/72 03/27/24 06:32 Pulse Oximetry 100 03/27/24 06:32 Oxygen Delivery Room Air 03/26/24 15:50 <Joanna Ortez PA-C - Last Filed: 03/27/24 13:31> Vital Signs Temperature 97.9 F 03/26/24 15:50 Pulse Rate 77 03/26/24 15:50 Respiratory Rate 16 03/26/24 15:50 Blood Pressure 136/87 03/26/24 15:50 Pulse Oximetry 98 03/26/24 15:50 Oxygen Delivery Room Air 03/26/24 15:50 Temperature 97.9 F 03/26/24 15:50 Pulse Rate 79 03/27/24 06:32 Respiratory Rate 16 03/27/24 06:32 Blood Pressure 128/72 03/27/24 06:32 Pulse Oximetry 100 03/27/24 06:32 Oxygen Delivery Room Air 03/26/24 15:50 <Ju Fowler PA-C - Last Filed: 03/27/24 03:31> Vital Signs Temperature 97.9 F 03/26/24 15:50 Pulse Rate 77 03/26/24 15:50 Respiratory Rate 16 03/26/24 15:50 Blood Pressure 136/87 03/26/24 15:50 Pulse Oximetry 98 03/26/24 15:50 Oxygen Delivery Room Air 03/26/24 15:50 Temperature 97.9 F 03/26/24 15:50 Pulse Rate 79 03/27/24 06:32 Respiratory Rate 16 03/27/24 06:32 Blood Pressure 128/72 03/27/24 06:32 Pulse Oximetry 100 03/27/24 06:32 Oxygen Delivery Room Air 03/26/24 15:50 <Gracia Gutierrez MD - Last Filed: 03/27/24 06:01> MDM - Female Genitourinary MDM Narrative Medical decision making narrative: Patient presented to ED with vaginal bleeding, history of stage IV endometrial cancer, passing large blood clots today. Vital signs are stable upon arrival. No evidence of hemodynamic instability. Laboratory studies were obtained and showing stable hemoglobin at 11.7. This does appear consistent with patient's previous records. CMP is unremarkable. Urine with lots of RBCs, does show possible infection with 2+ leuk esterase, 21-50 WBC. Sent for culture. Discussed this with patient. She has not had any signs or symptoms of UTI. Will defer treatment for now all pending culture results. CT scan of chest/abdomen/pelvis was obtained as patient was scheduled to undergo this next week for evaluation of her cancer pain. Pelvic exam was performed and w/o evidence of hemorrhage, mild amt of bleeding. No significant clots or other concerning findings. Care signed out to Dr. Gutierrez at shift change pending STAT RAD results. <Ju Fowler PA-C - Last Filed: 03/27/24 03:31> Medical Records Attestation: I reviewed the patient's medical records. <Ju Fowler PA-C - Last Filed: 03/27/24 03:31> Lab Data Attestation: I reviewed the patient's lab results. <Ju Fowler PA-C - Last Filed: 03/27/24 03:31> Result diagrams: 03/26/24 22:12 03/26/24 22:12 <Joanna Ortez PA-C - Last Filed: 03/27/24 13:31> Labs: Lab Results 03/26/24 03/26/24 Range/Units 22:12 22:53 WBC 8.3 (4.5-10.0) K/mm3 RBC 4.00 L (4.2-5.4) M/mm3 Hgb 11.7 L (12.0-15.0) g/dL Hct 36.4 L (37.0-47.0) % MCV 91.0 (80-100) fl MCH 29.3 (26-34) pg MCHC 32.1 (32-36) g/dl RDW 14.1 (11.5-14.5) % Plt Count 160 (150-375) k/mm3 MPV 10.4 (7.4-10.4) fl Immature Gran % (Auto) 0.2 (0-0.5) % Neut % (Auto) 68.1 (45.5-73.1) % Lymph % (Auto) 23.5 (18.3-44.2) % [place] % (Auto) 6.8 (2.6-8.5) % Eos % (Auto) 1.0 (0-4.4) % Baso % (Auto) 0.4 (0.2-1.2) % Lymph # (Auto) 1.96 (0.9-3.2) K/mm3 [place] # (Auto) 0.6 (0.1-0.6) K/mm3 Eos # (Auto) 0.1 (0-0.3) K/mm3 Baso # (Auto) 0.0 (0.0-0.1) K/mm3 Abs Immat Gran (auto) 0.02 (0.00-0.031) K/mm3 Absolute Neuts (auto) 5.7 (1.3-6.7) K/mm3 Absolute Nucleated RBC 0.000 (0.0-0.012) K/mm3 Nucleated RBC % 0.0 (0.0-0.2) % PT 16.7 H (11.1-14.7) Seconds INR 1.3 APTT 41.9 H (22.3-36.8) Seconds Sodium 137 (137-145) mmol/L Potassium 3.9 (3.4-5.0) mmol/L Chloride 103 (98-107) mmol/L Carbon Dioxide 26 (22-30) mmol/L Anion Gap 8 (4-12) mmol/L BUN 18 H (7-17) mg/dL Creatinine 1.00 (0.7-1.0) mg/dL Estim Creat Clear Calc 44 ml/min Estimated GFR 54 L (59 - ) Glucose 107 (65-110) mg/dL Calcium 9.3 (8.4-10.2) mg/dL Total Bilirubin 0.9 (0.2-1.3) mg/dL AST 50 H (14-36) U/L ALT 20 (6-35) U/L Alkaline Phosphatase 134 H (38-126) U/L Total Protein 7.0 (6.3-8.2) g/dL Albumin 4.0 (3.5-5.1) g/dL Lipase 63 (23-300) U/L Urine Color [place]ferro H (Yellow) Urine Appearance Cloudy H (Clear) Urine pH 6.0 (5.0-9.0) Ur Specific [place] 1.018 (1.001-1.035) Urine Protein Trace (Negative) mg/dL Urine Glucose (UA) Negative (Negative) mg/dL Urine Ketones Negative (Negative) mg/dL Ur Blood (Man) 3+ H (Negative) Urine Nitrate Negative (Negative) Urine Bilirubin Negative (Negative) Urine Urobilinogen 1.0 (<2.0) mg/dL Leukocyte Esterase Rfl 2+ H (Negative) WINTER/UL Urine RBC >100 H (0-2) /hpf Urine WBC 21-50 H (0-3) /hpf Ur Squamous Epith Cells None seen (Few) /hpf Urine Bacteria None seen /hpf Urine Casts 0-2 <Joanna Ortez PA-C - Last Filed: 03/27/24 13:31> Lab Results 03/26/24 03/26/24 Range/Units 22:12 22:53 WBC 8.3 (4.5-10.0) K/mm3 RBC 4.00 L (4.2-5.4) M/mm3 Hgb 11.7 L (12.0-15.0) g/dL Hct 36.4 L (37.0-47.0) % MCV 91.0 (80-100) fl MCH 29.3 (26-34) pg MCHC 32.1 (32-36) g/dl RDW 14.1 (11.5-14.5) % Plt Count 160 (150-375) k/mm3 MPV 10.4 (7.4-10.4) fl Immature Gran % (Auto) 0.2 (0-0.5) % Neut % (Auto) 68.1 (45.5-73.1) % Lymph % (Auto) 23.5 (18.3-44.2) % [place] % (Auto) 6.8 (2.6-8.5) % Eos % (Auto) 1.0 (0-4.4) % Baso % (Auto) 0.4 (0.2-1.2) % Lymph # (Auto) 1.96 (0.9-3.2) K/mm3 [place] # (Auto) 0.6 (0.1-0.6) K/mm3 Eos # (Auto) 0.1 (0-0.3) K/mm3 Baso # (Auto) 0.0 (0.0-0.1) K/mm3 Abs Immat Gran (auto) 0.02 (0.00-0.031) K/mm3 Absolute Neuts (auto) 5.7 (1.3-6.7) K/mm3 Absolute Nucleated RBC 0.000 (0.0-0.012) K/mm3 Nucleated RBC % 0.0 (0.0-0.2) % PT 16.7 H (11.1-14.7) Seconds INR 1.3 APTT 41.9 H (22.3-36.8) Seconds Sodium 137 (137-145) mmol/L Potassium 3.9 (3.4-5.0) mmol/L Chloride 103 (98-107) mmol/L Carbon Dioxide 26 (22-30) mmol/L Anion Gap 8 (4-12) mmol/L BUN 18 H (7-17) mg/dL Creatinine 1.00 (0.7-1.0) mg/dL Estim Creat Clear Calc 44 ml/min Estimated GFR 54 L (59 - ) Glucose 107 (65-110) mg/dL Calcium 9.3 (8.4-10.2) mg/dL Total Bilirubin 0.9 (0.2-1.3) mg/dL AST 50 H (14-36) U/L ALT 20 (6-35) U/L Alkaline Phosphatase 134 H (38-126) U/L Total Protein 7.0 (6.3-8.2) g/dL Albumin 4.0 (3.5-5.1) g/dL Lipase 63 (23-300) U/L Urine Color [place] H (Yellow) Urine Appearance Cloudy H (Clear) Urine pH 6.0 (5.0-9.0) Ur Specific [place] 1.018 (1.001-1.035) Urine Protein Trace (Negative) mg/dL Urine Glucose (UA) Negative (Negative) mg/dL Urine Ketones Negative (Negative) mg/dL Ur Blood (Man) 3+ H (Negative) Urine Nitrate Negative (Negative) Urine Bilirubin Negative (Negative) Urine Urobilinogen 1.0 (<2.0) mg/dL Leukocyte Esterase Rfl 2+ H (Negative) [place]/UL Urine RBC >100 H (0-2) /hpf Urine WBC 21-50 H (0-3) /hpf Ur Squamous Epith Cells None seen (Few) /hpf Urine Bacteria None seen /hpf Urine Casts 0-2 <Ju Fowler PA-C - Last Filed: 03/27/24 03:31> Lab Results 03/26/24 03/26/24 Range/Units 22:12 22:53 WBC 8.3 (4.5-10.0) K/mm3 RBC 4.00 L (4.2-5.4) M/mm3 Hgb 11.7 L (12.0-15.0) g/dL Hct 36.4 L (37.0-47.0) % MCV 91.0 (80-100) fl MCH 29.3 (26-34) pg MCHC 32.1 (32-36) g/dl RDW 14.1 (11.5-14.5) % Plt Count 160 (150-375) k/mm3 MPV 10.4 (7.4-10.4) fl Immature Gran % (Auto) 0.2 (0-0.5) % Neut % (Auto) 68.1 (45.5-73.1) % Lymph % (Auto) 23.5 (18.3-44.2) % [place] % (Auto) 6.8 (2.6-8.5) % Eos % (Auto) 1.0 (0-4.4) % Baso % (Auto) 0.4 (0.2-1.2) % Lymph # (Auto) 1.96 (0.9-3.2) K/mm3 [place] # (Auto) 0.6 (0.1-0.6) K/mm3 Eos # (Auto) 0.1 (0-0.3) K/mm3 Baso # (Auto) 0.0 (0.0-0.1) K/mm3 Abs Immat Gran (auto) 0.02 (0.00-0.031) K/mm3 Absolute Neuts (auto) 5.7 (1.3-6.7) K/mm3 Absolute Nucleated RBC 0.000 (0.0-0.012) K/mm3 Nucleated RBC % 0.0 (0.0-0.2) % PT 16.7 H (11.1-14.7) Seconds INR 1.3 APTT 41.9 H (22.3-36.8) Seconds Sodium 137 (137-145) mmol/L Potassium 3.9 (3.4-5.0) mmol/L Chloride 103 (98-107) mmol/L Carbon Dioxide 26 (22-30) mmol/L Anion Gap 8 (4-12) mmol/L BUN 18 H (7-17) mg/dL Creatinine 1.00 (0.7-1.0) mg/dL Estim Creat Clear Calc 44 ml/min Estimated GFR 54 L (59 - ) Glucose 107 (65-110) mg/dL Calcium 9.3 (8.4-10.2) mg/dL Total Bilirubin 0.9 (0.2-1.3) mg/dL AST 50 H (14-36) U/L ALT 20 (6-35) U/L Alkaline Phosphatase 134 H (38-126) U/L Total Protein 7.0 (6.3-8.2) g/dL Albumin 4.0 (3.5-5.1) g/dL Lipase 63 (23-300) U/L Urine Color [place] H (Yellow) Urine Appearance Cloudy H (Clear) Urine pH 6.0 (5.0-9.0) Ur Specific [place] 1.018 (1.001-1.035) Urine Protein Trace (Negative) mg/dL Urine Glucose (UA) Negative (Negative) mg/dL Urine Ketones Negative (Negative) mg/dL Ur Blood (Man) 3+ H (Negative) Urine Nitrate Negative (Negative) Urine Bilirubin Negative (Negative) Urine Urobilinogen 1.0 (<2.0) mg/dL Leukocyte Esterase Rfl 2+ H (Negative) WINTER/UL Urine RBC >100 H (0-2) /hpf Urine WBC 21-50 H (0-3) /hpf Ur Squamous Epith Cells None seen (Few) /hpf Urine Bacteria None seen /hpf Urine Casts 0-2 <Gracia Gutierrez MD - Last Filed: 03/27/24 06:01> Imaging Data Attestation: I personally reviewed and interpreted this imaging study as follows: <Ju Fowler PA-C - Last Filed: 03/27/24 03:31> Radiologist's impression: ITS Impressions Chest/Abdomen/Pelvis CT 03/27/24 05:57 Impression: Interval progression of disease from prior exam. Hepatic and pulmonary metastases are increased in size and number. There are new scattered peritoneal metastatic implants, as detailed above. Several suspected sclerotic osseous metastases are also now present, as noted above. New 3.8 cm left adnexal mass, which could reflect an exophytic uterine lesion versus left ovarian lesion. Metastatic lesion is a consideration. Calcified uterine fibroid and heterogeneous appearance of the endometrium, similar to prior exam. <Joanna Ortez PA-C - Last Filed: 03/27/24 13:31> Critical Care Time Critical Care Time Critical Care Time: No <NANCY Durant Last Filed: 03/27/24 13:31> Discharge Plan Discharge Clinical Impression: Abnormal vaginal bleeding, Endometrial cancer <NANCY Durant Last Filed: 03/27/24 13:31> Patient Disposition: Home, Self-Care <NANCY Durant Filed: 03/27/24 13:31> Condition: Stable <NANCY Durant Filed: 03/27/24 13:31> Instructions: Antibiotic Form, Abnormal (Dysfunctional) Uterine Bleeding (ED) <NANCY Durant Filed: 03/27/24 13:31> Additional Instructions: Follow-up with your oncologist for further evaluation. Continue to monitor bleeding. Return to ED if you experience worsening or severe bleeding, feeling dizzy or lightheaded, severe pain, or any other symptoms of concern. <NANCY Durant Last Filed: 03/27/24 13:31> Prescriptions: No Action famotidine 20 mg tablet 20 mg PO DAILY pantoprazole 40 mg tablet,delayed release (DR/EC) 40 mg PO QAM apixaban 5 mg tablet 5 mg PO BID pyridoxine (vitamin B6) 25 mg tablet 25 mg PO DAILY magnesium oxide 400 mg magnesium capsule 400 mg PO DAILY sodium chloride 1,000 mg tablet,soluble 1,000 mg PO DAILY atorvastatin 10 mg tablet See Rx Instructions .ROUTE .COMPLEX Qty: 90 3RF Dose Instruction: TAKE 1 TABLET DAILY AT BEDTIME Rx Instructions: TAKE 1 TABLET DAILY AT BEDTIME ezetimibe 10 mg tablet See Rx Instructions .ROUTE .COMPLEX Qty: 90 3RF Dose Instruction: TAKE 1 TABLET DAILY Rx Instructions: TAKE 1 TABLET DAILY metoprolol succinate 50 mg tablet extended release 24 hr See Rx Instructions .ROUTE .COMPLEX Qty: 180 3RF Dose Instruction: TAKE 2 TABLETS DAILY Rx Instructions: TAKE 2 TABLETS DAILY pregabalin 25 mg capsule 25 mg PO TID Qty: 270 0RF irbesartan 75 mg tablet 75 mg PO DAILY Qty: 90 0RF <Joanna Ortez PA-C - Last Filed: 03/27/24 13:31> Follow-up/Referrals: Katya Clark MD [Primary Care Provider] - <Joanna Ortez PA-C - Last Filed: 03/27/24 13:31>
[2024-03-26 22:18] LABS: Basophils Percent Auto 0.4 % (0.2-1.2); Eosinophils Absolute Auto 0.1 K/mm3 (0-0.3); Hematocrit 36.4 % (37.0-47.0); Hemoglobin 11.7 g/dL (12.0-15.0); Immature Granulocyte Absolute 0.02 K/mm3 (0.00-0.031); Immature Granulocyte Percent A 0.2 % (0-0.5); Lymphocytes Absolute Auto 1.96 K/mm3 (0.9-3.2); Lymphocytes Percent Auto 23.5 % (18.3-44.2); Mean Corpuscular HGB Conc 32.1 g/dl (32-36); Mean Corpuscular Hemoglobin 29.3 pg (26-34); Mean Platelet Volume 10.4 fl (7.4-10.4); Monocytes Absolute Auto 0.6 K/mm3 (0.1-0.6); Monocytes Percent Auto 6.8 % (2.6-8.5); Neutrophils Absolute Auto 5.7 K/mm3 (1.3-6.7); Neutrophils Percent Auto 68.1 % (45.5-73.1); Platelet Count Result 160 k/mm3 (150-375); Red Cell Distribution Width 14.1 % (11.5-14.5); White Blood Count 8.3 K/mm3 (4.5-10.0)
[2024-03-26 22:29] LABS: Alanine Aminotransferase 20 U/L (6-35); Alkaline Phosphatase 134 U/L (38-126); Anion Gap 8 mmol/L (4-12); Aspartate Amino Transferase 50 U/L (14-36); Bilirubin,Total 0.9 mg/dL (0.2-1.3); Blood Urea Nitrogen 18 mg/dL (7-17); Calcium 9.3 mg/dL (8.4-10.2); Carbon Dioxide 26 mmol/L (22-30); Chloride 103 mmol/L (98-107); Estimated CRCL calculation 44 ml/min; Estimated Glomerular Filt Rate 54; Glucose 107 mg/dL (65-110); INR 1.3; Lipase 63 U/L (23-300); Potassium 3.9 mmol/L (3.4-5.0); Prothrombin Time 16.7 Seconds (11.1-14.7); Sodium 137 mmol/L (137-145)
[2024-03-26 22:30] LABS: Partial Thromboplastin Time 41.9 Seconds (22.3-36.8)
[2024-03-26 22:51] VITALS: BP 138/60; PULSE 90; RESP 20; O2SAT 98
[2024-03-26 23:00] VITALS: PULSE 82; RESP 17
[2024-03-26 23:08] LABS: Bacteria Urine None Seen /hpf; Non Pathogenic Casts 0-2; RBC Urine >100 /hpf (0-2); Squamous Epithelial Cell Urine None Seen /hpf (Few); WBC Urine 21-50 /hpf (0-3)
[2024-03-26 23:10] LABS: Add Urine Microscopic? YES; Appearance Urine Cloudy (Clear); Bilirubin Urine Negative (Negative); Blood Urine 3+ (Negative); Color Urine Orange (Yellow); Glucose Urine UA Negative (Negative); Ketones Urine Negative (Negative); Leukocyte Esterase Ur 2+ LEU/UL (Negative); Nitrate Urine Negative (Negative); Protein Urine Trace mg/dL (Negative); Specific Grav Ur 1.018 (1.001-1.035)
[2024-03-26 23:15] VITALS: BP 131/69; PULSE 76; RESP 18
[2024-03-27 01:25] VITALS: BP 150/88; PULSE 86; RESP 15; O2SAT 100
[2024-03-27 05:00] VITALS: BP 122/62; PULSE 78; RESP 15; O2SAT 98
[2024-03-27] MEDS: HEPARIN SODIUM LOCK FLUSH 500 UNITS/5 ML SYRINGE IV PUSH (06:13)
[2024-03-27 06:32] VITALS: BP 128/72; PULSE 79; RESP 16; O2SAT 100
--- NOTE | 2024-03-27 06:32 | PC.NURSE ---
Port deaccessed per protocol.
== END 2024-03-27 06:33 | disposition home or self-care (01) ==
PROVIDERS: Physician Assistant; Emergency Provider Physician Assistant; PCP Family Medicine
DX: N93.9 Abnormal uterine and vaginal bleeding, unspecified (principal); C54.1 Malignant neoplasm of endometrium; Z79.01 Long term (current) use of anticoagulants; N18.9 Chronic kidney disease, unspecified; E78.2 Mixed hyperlipidemia; E66.9 Obesity, unspecified; Z68.35 Body mass index [BMI] 35.0-35.9, adult; Z96.659 Presence of unspecified artificial knee joint; Z96.619 Presence of unspecified artificial shoulder joint
CPT/HCPCS: 36415; 71260; 74177; 80053; 81001; 83690; 85025; 85610; 85730; 87086; 96374; 99284; Q9967